=== PATIENT | female | born 1965 | race Caucasian/White ===

== ENCOUNTER → 2019-10-21 09:52 | Outpatient (BNVA) | payer MEDICARE, MEDICAID, SELFPAY | PROVIDERS: Family Provider Internal Medicine; PCP Internal Medicine; Visit Provider Specialist | DX: G31.83 Neurocognitive disorder with Lewy bodies (principal); F02.80 Dementia in other diseases classified elsewhere, unspecified severity, without behavioral disturbance, psychotic disturbance, mood disturbance, and anxiety | CPT/HCPCS: 99213 ==

== ENCOUNTER → 2020-04-20 13:15 | Outpatient (BNVA) | payer MEDICARE, MEDICAID, SELFPAY | PROVIDERS: Family Provider Internal Medicine; PCP Internal Medicine; Visit Provider Specialist | DX: G31.83 Neurocognitive disorder with Lewy bodies (principal); F02.80 Dementia in other diseases classified elsewhere, unspecified severity, without behavioral disturbance, psychotic disturbance, mood disturbance, and anxiety | CPT/HCPCS: 99213 ==

== ENCOUNTER → 2020-05-21 09:06 | Outpatient (BNVA) | payer MEDICARE, MEDICAID, SELFPAY | PROVIDERS: Family Provider Internal Medicine; PCP Internal Medicine; Visit Provider Internal Medicine | DX: Z11.59 Encounter for screening for other viral diseases (principal) | CPT/HCPCS: 87635 ==

== ENCOUNTER 2020-05-24 09:01 | Day surgery (SDC) | payer MEDICARE, MEDICAID, SELFPAY ==
[2020-05-20 12:55] VITALS: BMI 24.4
[2020-05-24 09:45] VITALS: BP 141/86; PULSE 89; RESP 18; TEMP 36.4; O2SAT 95
[2020-05-24] MEDS: sodium chloride 0.9% 1,000 ML 30 ML IV (09:58)
--- NOTE | 2020-05-24 10:08 | W.PM.OPSUD ---
Surgery/Procedure H&P Update DATE OF PROCEDURE: May 24, 2020 DATE H&P PERFORMED: 05/18/20 PREOP DIAGNOSIS: c PLANNED PROCEDURE: Operation Date: 05/24/20 10:30 Proposed Procedures p Colonoscopy 26439 K92.1(Not Applicable) - Deirk Galan MD
--- NOTE | 2020-05-24 10:21 | ANES.PREANE2 ---
Pre-Anesthetic Assessment Pre-Anesthetic Assessment: Height/Weight: Height 1.47 m Weight 53.07 kg Temp Pulse Resp BP Pulse Ox 97.6 F 89 18 141/86 95 05/24/20 09:45 05/24/20 09:45 05/24/20 09:45 05/24/20 09:45 05/24/20 09:45 Preop Diagnosis: hematochezia Proposed Procedure: Operation Date: 05/24/20 10:30 Proposed Procedures p Colonoscopy 09658 K92.1(Not Applicable) - Derik Galan MD Familial anesthetic complications: None (but family hx not well known) Was Beta Go taken within 24 hours: N/A Last intake: Intake Last Liquid Date 05/23/20 Last Liquid Time 20:30 Last Solid Date 05/22/20 Last Solid Time 22:30 Social: Social History: No alcohol and No tobacco Exam: Pre-Anes Outpt Exam: alert, oriented x 3, clear to auscultation bilaterally and regular rate & rhythm Airway: Cervical ROM: WNL MP: 4 Dentition: Chipped Pulmonary: Pulmonary: None reported Neuropsych: Comments: lewy body dementia, Mental retardation, Cerebral palsy, tardive truncal dystonia Anesthetic Plan: ASA status: 2 Anesthesia: MAC Risk of > 500 ml blood loss (7ml/kg in children): No Meds/Allergies Current Medications: Current Medications Generic Name Dose Route Start Last Admin Trade Name Freq PRN Reason Stop Dose Admin Sodium Chloride 1,000 mls @ 30 ml s/hr 05/24/20 09:15 05/24/20 09:58 Sodium Chloride 0.9% IV 30 mls/hr .Q24H ALICE Administration PFSH Anesthesia PFSH: Social History Smoking and tobacco status: never smoked Alcohol intake: never History of recent travel: No Data Anesthesia Cardiac Studies: No Data to Display
[2020-05-24 11:19] VITALS: BP 129/82; PULSE 85; RESP 16; TEMP 36.6; O2SAT 97
--- NOTE | 2020-05-24 11:20 | ANE.PACU2 ---
Inpatient post-anesthesia follow up: Airway intact: Yes Vital signs: Temperature 97.6 F Pulse Rate 89 Respiratory Rate 18 Blood Pressure 141/86 Pulse Oximetry 95 Oxygen Delivery Me thod Room Air Oxygen Flow Rate Fraction of Inspir ed Oxygen Hydration adequate: Yes Nausea and vomiting: No Pain level: 1 Mental status: Baseline
[2020-05-24 11:40] VITALS: BP 124/88; PULSE 102; RESP 16; O2SAT 97
== END 2020-05-24 11:45 | disposition home or self-care (01) ==
PROVIDERS: Family Provider Internal Medicine; PCP Internal Medicine; Visit Provider Internal Medicine
PROC: 0DJD8ZZ Inspection of Lower Intestinal Tract, Via Natural or Artificial Opening Endoscopic (ICD-10-PCS; CPT 45378; principal; 2020-05-24 10:30)
DX: Z12.11 Encounter for screening for malignant neoplasm of colon (principal); K92.1 Melena; G31.83 Neurocognitive disorder with Lewy bodies; F02.80 Dementia in other diseases classified elsewhere, unspecified severity, without behavioral disturbance, psychotic disturbance, mood disturbance, and anxiety; G80.9 Cerebral palsy, unspecified
CPT/HCPCS: 12345; 45378; J2704; J7030

== ENCOUNTER 2020-05-27 10:00 | Outpatient (CLI) | payer MEDICARE, MEDICAID, SELFPAY ==
--- NOTE | 2020-05-27 10:12 | MM_ITS ---
WS: [id number] BILATERAL DIGITAL SCREENING MAMMOGRAPHY WITH CAD CLINICAL INFORMATION: SCREEN HISTORY: Screening mammogram. No current complaints. COMPARISON: TECHNIQUE: Bilateral CC and MLO views. FINDINGS: The breasts are composed of heterogeneous fibroglandular density tissue, which can limit the detectio n of small underlying mass lesions. No suspicious mass, asymmetry, calcifications, or architectural d istortion. No evidence of malignancy. Stable punctate and secretory calcifications. MM/[place] [id number] IMPRESSION: BI-RADS: 2-Benign FOLLOW UP: 1 Year Follow-up Recommend return to annual screening mammography.
== END 2020-05-27 10:01 | disposition home or self-care (01) ==
LOC: RADSHAW 10:08
PROVIDERS: PCP Internal Medicine; Visit Provider Internal Medicine
DX: Z12.31 Encounter for screening mammogram for malignant neoplasm of breast (principal)
CPT/HCPCS: 77067

== ENCOUNTER → 2020-10-13 11:28 | Outpatient (BNVA) | payer MEDICARE, MEDICAID, SELFPAY | PROVIDERS: Family Provider Internal Medicine; PCP Internal Medicine; Visit Provider Specialist | DX: G31.83 Neurocognitive disorder with Lewy bodies (principal); F02.80 Dementia in other diseases classified elsewhere, unspecified severity, without behavioral disturbance, psychotic disturbance, mood disturbance, and anxiety | CPT/HCPCS: 99213 ==

== ENCOUNTER 2021-01-02 09:24 | Inpatient (IN) | payer MEDICARE, MEDICAID, SELFPAY ==
[2021-01-02] VITALS (14 sets, daily range): BP systolic 127–154; BP diastolic 77–112; PULSE 64–125; RESP 16–20; TEMP 36.5–37.2; O2SAT 90–98; BMI 33.4
--- NOTE | 2021-01-02 09:29 | ECG_ITS ---
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
--- NOTE | 2021-01-02 09:29 | XRR_ITS ---
PROCEDURE INFORMATION: Exam: XR Chest Exam date and time: 01/02/2021 9:47 AM Age: 55 years old Clinical indication: Other: AMS TECHNIQUE: Imaging protocol: XR of the chest. Views: 1 view. COMPARISON: No relevant prior studies available. FINDINGS: Lungs: Unremarkable. No consolidation. Pleural spaces: Unremarkable. No pleural effusion. No pneumothorax. Heart/Mediastinum: Unremarkable. No cardiomegaly. Bones/joints: Unremarkable. XR/XR chest 1V portable [id number] IMPRESSION: No acute findings.
--- NOTE | 2021-01-02 09:46 | CTR_ITS ---
PROCEDURE INFORMATION: Exam: CT Head Without Contrast Exam date and time: 01/02/2021 10:56 AM Age: 55 years old Clinical indication: Altered mental status/memory loss; Additional info: AMS TECHNIQUE: Imaging protocol: Computed tomography of the head without contrast. Radiation optimization: All CT scans at this facility use at least one of these dose optimization techniques: automated exposure control; mA and/or kV adjustment per patient size (includes targeted exams where dose is matched to clinical indication); or iterative reconstruction. COMPARISON: CT head wo con* [id number] 08/06/2019 7:57 PM RADIATION DOSE METRICS: Total DLP (mGy-cm): 895.89 FINDINGS: Brain: There is mild chronic atrophy. There is mild decreased white matter density indicating chronic small vessel white matter ischemia. No intracranial hemorrhage, edema or other acute abnormalities are seen in the brain. There is no mass effect or midline shift. Cerebral ventricles: No ventriculomegaly. Bones/joints: Unremarkable. No acute fracture. Paranasal sinuses: Visualized sinuses are unremarkable. No fluid levels. Mastoid air cells: Visualized mastoid air cells are well aerated. Soft tissues: Unremarkable. CT/CT head wo con* [id number] IMPRESSION: 1. Mild chronic atrophy with chronic white matter ischem. ic change. 2. No acute abnormality Radiation Dose CTDIVOL = (mGy): DLP = 895.89 (mGy-cm)
--- NOTE | 2021-01-02 10:04 | W.ED.PSYCH ---
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 Specimen Type Sample Site ABG pH (7.35-7.45) ABG pCO2 (35-45) mmHg ABG pO2 (80.0-100.0) mmH g ABG HCO3 (22-26) mmol/L ABG O2 Saturation ABG Base Excess (-2.0-2.0) mmol/ L Nicola Test A-a O2 Gradient (5-10) mmHg Hematocrit (37-47) % Hgb O2 Saturation (95-100) % Carboxyhemoglobin (0.4-20.1) %THgb Methemoglobin (0.4-1.5) % Total Hemoglobin (12-16) g/dL Ionized Calcium (1.1-1.4) mmol/L O2 Delivery Device Casino Cage Manager ID Sodium 143 (136-145) mmol/L Potassium 4.5 (3.5-5.1) mmol/L Chloride 103 (98-107) mmol/L Carbon Dioxide 31 H (22-29) mmol/L Anion Gap 13.5 (5-19) BUN 12 (6-20) mg/dL Creatinine 0.7 (0.5-0.9) mg/dL GFR Calculation 86.6 L (90-130) mL/min Glucose 96 (65-115) mg/dL Calculated Osmolal ity 296 H (285-295) mOsm/k g Lactate (0.5-2.2) mmol/L Calcium 8.7 (8.5-10.5) mg/dL Total Bilirubin 0.5 (0.15-1.2) mg/dL AST 21 (0-32) U/L ALT 14 (0-33) U/L Alkaline Phosphata se 113 H (35-105) IU/L Troponin T Baselin e 10 (0-10) ng/L Troponin T 120 Min [place] (0-10) ng/L Delta Troponin T (0-10) ABS# Total Protein 6.5 L (6.6-8.7) g/dL Albumin 4.1 (3.5-5.2) g/dL Globulin 2.4 (1.3-4.6) g/dL Urine Color (Yellow) Urine Appearance (CLEAR) Urine pH (5-7) Ur Specific Gravit y (1.005-1.030) Urine Protein (Negative) Urine Glucose (UA) (Normal) Urine Ketones (Negative) Urine Blood (Negative) Urine Nitrate (Negative) Urine Bilirubin (Negative) Urine Urobilinogen (Negative) mg/dL Ur Leukocyte Елена ase (Negative) Urine RBC (0-2) /hpf Urine WBC (0-5) /hpf Ur Squamous Epith Cells (0-5) /hpf Amorphous Sediment Urine Bacteria (NONE) /hpf Urine Mucus /hpf Salicylates < 0.3 L (3-10) mg/dL Urine Opiates Scre en (Negative) ng/mL Acetaminophen < 5.0 L (10-30) ug/mL Ur Barbiturates Sc reen (Negative) ng/mL Ur Phencyclidine S crn (Negative) ng/mL Ur Amphetamines Sc reen (Negative) ng/mL U Benzodiazepines Scrn (Negative) ng/mL Urine Cocaine Scre en (Negative) ng/mL U Marijuana (THC) Screen (Negative) ng/mL Ethyl Alcohol < 10 (0-10) mg/dL 01/02/21 01/02/21 01/02/21 Range/Units 10:07 10:07 10:35 WBC (4.0-10.0) 10^3/ uL RBC (4.1-5.3) 10^6/u L Hgb (11.5-15.3) g/dL Hct (37.0-47.0) % MCV (81-99) fL MCH (28.0-34.0) pg MCHC (30.0-36.0) g/dL RDW (12.1-15.1) % Plt Count (130-400) 10^3/c mm MPV (7.4-10.4) fL Neut % (Auto) % Lymph % (Auto) % [place] % (Auto) % Eos % (Auto) % Baso % (Auto) % Neut # (Auto) (1.8-7.7) 10^3/u L Lymph # (Auto) (0.8-4.8) 10^3/u L [place] # (Auto) (0.2-0.9) 10^3/u L Eos # (Auto) (0.0-0.8) 10^3/u L Baso # (Auto) (0.0-0.1) 10^3/u L Nucleated RBC % (a uto) % Nucleated RBCs # /100WBC Specimen Type Sample Site ABG pH (7.35-7.45) ABG pCO2 (35-45) mmHg ABG pO2 (80.0-100.0) mmH g ABG HCO3 (22-26) mmol/L ABG O2 Saturation ABG Base Excess (-2.0-2.0) mmol/ L Nicola Test A-a O2 Gradient (5-10) mmHg Hematocrit (37-47) % Hgb O2 Saturation (95-100) % Carboxyhemoglobin (0.4-20.1) %THgb Methemoglobin (0.4-1.5) % Total Hemoglobin (12-16) g/dL Ionized Calcium (1.1-1.4) mmol/L O2 Delivery Device Casino Cage Manager ID Sodium (136-145) mmol/L Potassium (3.5-5.1) mmol/L Chloride (98-107) mmol/L Carbon Dioxide (22-29) mmol/L Anion Gap (5-19) BUN (6-20) mg/dL Creatinine (0.5-0.9) mg/dL GFR Calculation (90-130) mL/min Glucose (65-115) mg/dL Calculated Osmolal ity (285-295) mOsm/k g Lactate 2.8 H (0.5-2.2) mmol/L Calcium (8.5-10.5) mg/dL Total Bilirubin (0.15-1.2) mg/dL AST (0-32) U/L ALT (0-33) U/L Alkaline Phosphata se (35-105) IU/L Troponin T Baselin e (0-10) ng/L Troponin T 120 Min [place] (0-10) ng/L Delta Troponin T (0-10) ABS# Total Protein (6.6-8.7) g/dL Albumin (3.5-5.2) g/dL Globulin (1.3-4.6) g/dL Urine Color Dark yellow (Yellow) Urine Appearance Sl hazy (CLEAR) Urine pH 5 (5-7) Ur Specific Gravit y 1.020 (1.005-1.030) Urine Protein Neg (Negative) Urine Glucose (UA) Norm (Normal) Urine Ketones Negative (Negative) Urine Blood Neg (Negative) Urine Nitrate Negative (Negative) Urine Bilirubin Neg (Negative) Urine Urobilinogen 1 H (Negative) mg/dL Ur Leukocyte Елена ase Trace H (Negative) Urine RBC None (0-2) /hpf Urine WBC 5-10 H (0-5) /hpf Ur Squamous Epith Cells 15-25 H (0-5) /hpf Amorphous Sediment Not Reportable Urine Bacteria Trace (NONE) /hpf Urine Mucus 1+ /hpf Salicylates (3-10) mg/dL Urine Opiates Scre en Negative (Negative) ng/mL Acetaminophen (10-30) ug/mL Ur Barbiturates Sc reen Negative (Negative) ng/mL Ur Phencyclidine S crn Negative (Negative) ng/mL Ur Amphetamines Sc reen Negative (Negative) ng/mL U Benzodiazepines Scrn Positive H (Negative) ng/mL Urine Cocaine Scre en Negative (Negative) ng/mL U Marijuana (THC) Screen Negative (Negative) ng/mL Ethyl Alcohol (0-10) mg/dL 01/02/21 01/02/21 Range/Units 12:40 13:05 WBC (4.0-10.0) 10^3/ uL RBC (4.1-5.3) 10^6/u L Hgb (11.5-15.3) g/dL Hct (37.0-47.0) % MCV (81-99) fL MCH (28.0-34.0) pg MCHC (30.0-36.0) g/dL RDW (12.1-15.1) % Plt Count (130-400) 10^3/c mm MPV (7.4-10.4) fL Neut % (Auto) % Lymph % (Auto) % [place] % (Auto) % Eos % (Auto) % Baso % (Auto) % Neut # (Auto) (1.8-7.7) 10^3/u L Lymph # (Auto) (0.8-4.8) 10^3/u L [place] # (Auto) (0.2-0.9) 10^3/u L Eos # (Auto) (0.0-0.8) 10^3/u L Baso # (Auto) (0.0-0.1) 10^3/u L Nucleated RBC % (a uto) % Nucleated RBCs # /100WBC Specimen Type Arterial Sample Site Radial, left ABG pH 7.35 (7.35-7.45) ABG pCO2 54.2 H (35-45) mmHg ABG pO2 63.4 L (80.0-100.0) mmH g ABG HCO3 29.9 H (22-26) mmol/L ABG O2 Saturation 91.6 ABG Base Excess 3.1 H (-2.0-2.0) mmol/ L Nicola Test Pos A-a O2 Gradient 2.7 L (5-10) mmHg Hematocrit 41.6 (37-47) % Hgb O2 Saturation 90.5 L (95-100) % Carboxyhemoglobin 0.4 (0.4-20.1) %THgb Methemoglobin 0.8 (0.4-1.5) % Total Hemoglobin 13.6 (12-16) g/dL Ionized Calcium 1.2 (1.1-1.4) mmol/L O2 Delivery Device Room air Casino Cage Manager ID Cak Sodium 144.0 H (136-145) mmol/L Potassium 3.7 (3.5-5.1) mmol/L Chloride (98-107) mmol/L Carbon Dioxide (22-29) mmol/L Anion Gap (5-19) BUN (6-20) mg/dL Creatinine (0.5-0.9) mg/dL GFR Calculation (90-130) mL/min Glucose 89.0 (65-115) mg/dL Calculated Osmolal ity (285-295) mOsm/k g Lactate (0.5-2.2) mmol/L Calcium (8.5-10.5) mg/dL Total Bilirubin (0.15-1.2) mg/dL AST (0-32) U/L ALT (0-33) U/L Alkaline Phosphata se (35-105) IU/L Troponin T Baselin e (0-10) ng/L Troponin T 120 Min [place] 9.04 (0-10) ng/L Delta Troponin T -0.96 L (0-10) ABS# Total Protein (6.6-8.7) g/dL Albumin (3.5-5.2) g/dL Globulin (1.3-4.6) g/dL Urine Color (Yellow) Urine Appearance (CLEAR) Urine pH (5-7) Ur Specific Gravit y (1.005-1.030) Urine Protein (Negative) Urine Glucose (UA) (Normal) Urine Ketones (Negative) Urine Blood (Negative) Urine Nitrate (Negative) Urine Bilirubin (Negative) Urine Urobilinogen (Negative) mg/dL Ur Leukocyte Елена ase (Negative) Urine RBC (0-2) /hpf Urine WBC (0-5) /hpf Ur Squamous Epith Cells (0-5) /hpf Amorphous Sediment Urine Bacteria (NONE) /hpf Urine Mucus /hpf Salicylates (3-10) mg/dL Urine Opiates Scre en (Negative) ng/mL Acetaminophen (10-30) ug/mL Ur Barbiturates Sc reen (Negative) ng/mL Ur Phencyclidine S crn (Negative) ng/mL Ur Amphetamines Sc reen (Negative) ng/mL U Benzodiazepines Scrn (Negative) ng/mL Urine Cocaine Scre en (Negative) ng/mL U Marijuana (THC) Screen (Negative) ng/mL Ethyl Alcohol (0-10) mg/dL Discharge Plan Discharge Patient Disposition: Admitted As Inpatient Admit Provider: Sher Woodard Clinical Impression: Delirium Pneumonia Qualifiers: Pneumonia type: due to unspecified organism Laterality: left Lung location: lower lobe of lung Qualified Code(s): J18.9 - Pneumonia, unspecified organism Condition: Stable Discharge Diet: Usual diet Discharge Activity: Resume usual activity Coding Level of Care Code ED Medical Claims Assistant for [place] Fwd Exam Comprehensive
[2021-01-02] MEDS: LORazepam 2 mg/mL INJ 1 mL IM (10:23)
[2021-01-02 10:45] LABS: Troponin(5th) Baseline 10 ng/L (0-10)
[2021-01-02 10:46] LABS: Basophils % 0.3 %; Eosinophils # 0.1 10^3/uL (0.0-0.8); Eosinophils % 0.6 %; Hematocrit 41.8 % (37.0-47.0); Hemoglobin 13.2 g/dL (11.5-15.3); Lymphocytes # 1.3 10^3/uL (0.8-4.8); Lymphocytes % 13.3 %; Mean Corpuscular HGB Conc 31.6 g/dL (30.0-36.0); Mean Corpuscular Hemoglobin 31.1 pg (28.0-34.0); Mean Corpuscular Volume 98.6 fL (81-99); Mean Platelet Volume 9.5 fL (7.4-10.4); Monocytes # 0.7 10^3/uL (0.2-0.9); Monocytes % 6.8 %; Neutrophils # 7.89 10^3/uL (1.8-7.7); Neutrophils % 78.8 %; Nucleated Red Blood Cells % 0 %; Platelet Count 179 10^3/cmm (130-400); Red Blood Count 4.24 10^6/uL (4.1-5.3); Red Cell Distribution Width 12.6 % (12.1-15.1)
[2021-01-02 10:47] LABS: Alanine Aminotransferase 14 U/L (0-33); Albumin Level 4.1 g/dL (3.5-5.2); Alkaline Phosphatase 113 IU/L (35-105); Anion Gap 13.5 (5-19); Aspartate Amino Transferase 21 U/L (0-32); Blood Urea Nitrogen 12 mg/dL (6-20); Calcium 8.7 mg/dL (8.5-10.5); Carbon Dioxide 31 mmol/L (22-29); Chloride 103 mmol/L (98-107); Globulin 2.4 g/dL (1.3-4.6); Glomerular Filtration Rate 86.6 mL/min (90-130); Glucose 96 mg/dL (65-115); Osmolality Calculated 296 mOsm/kg (285-295); Potassium 4.5 mmol/L (3.5-5.1); Sodium 143 mmol/L (136-145); Total Bilirubin 0.5 mg/dL (0.15-1.2); Total Protein 6.5 g/dL (6.6-8.7)
[2021-01-02 10:48] LABS: Amphetamines Screen Urine Negative (Negative); Barbiturates Screen Urine Negative (Negative); Benzodiazepines Screen Urine Positive (Negative); Cocaine Screen Urine Negative (Negative); Opiate Screen Urine Negative (Negative); PCP Screen Urine Negative (Negative); THC Screen Urine Negative (Negative)
[2021-01-02 10:49] LABS: Urine Appearance SL Hazy (CLEAR); Urine Color Dark Yellow (Yellow); pH Urine 5 (5-7)
[2021-01-02 10:50] LABS: Add Urine Microscopic? YES; Bilirubin Urine Neg (Negative); Blood Urine Neg (Negative); Glucose Urine UA Norm (Normal); Ketones Urine Negative (Negative); Leukocyte Esterase Urine Trace (Negative); Nitrate Urine Negative (Negative); Protein Urine Neg (Negative); Urobilinogen Urine 1 mg/dL (Negative)
[2021-01-02 10:51] LABS: Acetaminophen < 5.0 ug/mL (10-30); Alcohol Level < 10 mg/dL (0-10); Salicylate < 0.3 mg/dL (3-10)
[2021-01-02 10:56] LABS: Lactate (Lactic Acid level) 2.8 mmol/L (0.5-2.2)
[2021-01-02 11:02] LABS: Squamous Epithelial Cell Urine 15-25 /hpf (0-5)
[2021-01-02 11:04] LABS: Bacteria Urine TRACE /hpf; Mucus Urine 1+ /hpf
[2021-01-02 11:05] LABS: Add Urine Culture? No
--- NOTE | 2021-01-02 11:18 | CTR_ITS ---
PROCEDURE INFORMATION: Exam: CT Abdomen And Pelvis With Contrast Exam date and time: 01/02/2021 1:49 PM Age: 55 years old Clinical indication: Abdominal pain; Additional info: Elevated lactic acid, abdominal pain TECHNIQUE: Imaging protocol: Computed tomography of the abdomen and pelvis with contrast. Radiation optimization: All CT scans at this facility use at least one of these dose optimization techniques: automated exposure control; mA and/or kV adjustment per patient size (includes targeted exams where dose is matched to clinical indication); or iterative reconstruction. Contrast material: OMNI 300; Contrast volume: 95 ml; Contrast route: INTRAVENOUS (IV); COMPARISON: No relevant prior studies available. RADIATION DOSE METRICS: Total DLP (mGy-cm): 1555.43 FINDINGS: Lungs: There is a left lower lobe pneumonia. Liver: Normal. No mass. Gallbladder and bile ducts: Normal. No calcified stones. No ductal dilation. Pancreas: Normal. No ductal dilation. Spleen: Normal. No splenomegaly. Adrenal glands: Normal. No mass. Kidneys and ureters: There is a benign 2 cm cyst in the left kidney. Otherwise the kidneys are unremarkable. Stomach and bowel: There is prominence of the amount of stool in the right-sided colon. There is no evidence of bowel obstruction. Appendix: The appendix is seen and is normal. Intraperitoneal space: Unremarkable. No free air. No significant fluid collection. Vasculature: Unremarkable. No abdominal aortic aneurysm. Lymph nodes: Unremarkable. No enlarged lymph nodes. Urinary bladder: The urinary bladder is distended. There is a small bubble of air in the urinary bladder. Reproductive: Unremarkable as visualized. Bones/joints: Mild chronic degenerative changes are present in the spine. Soft tissues: Unremarkable. CT/CT abdomen pelvis w con* [id number] IMPRESSION: 1. Left lower lobe pneumonia. 2. The urinary bladder is distended. There is a small bubble of air in the urinary bladder. This could be present if the patient has had recent catheterization. If not then cystitis from gas-forming organism cannot be excluded and correlate with urinalysis. COMMENTS: Consistent with the [employer]'s Incidental Findings Committee white paper (J Am Stanislav Radiol 2018): Any incidental renal lesion less than 1 cm or classified as too small to characterize, or any incidental cystic renal lesion characterized as simple-appearing, is likely benign. No follow-up imaging is recommended for these lesions per consensus recommendations based on imaging criteria. Radiation Dose CTDIVOL = (mGy): DLP = 1555.43 (mGy-cm)
[2021-01-02] MEDS: ziprasidone 20 mg/mL SDV 10 MG IM (11:38)
--- NOTE | 2021-01-02 12:09 | ECG_ITS ---
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
[2021-01-02 12:51] LABS: ABG PCO2 54.2 mmHg (35-45); ABG PH Result 7.35 (7.35-7.45); Alveolar-Arterial Oxygen Gradi 2.7 mmHg (5-10); Arterial Blood Gas Hematocrit 41.6 % (37-47); Base Excess ABG 3.1 mmol/L (-2.0-2.0); Blood Gas Allen Test Pos; Blood Gas Operator Identificat CAK; Blood Gas Sample Site Radial, left; Blood Gas Sample Type Arterial; Carboxyhemoglobin 0.4 %THgb (0.4-20.1); HCO3 ABG 29.9 mmol/L (22-26); HGB O2 Sat 90.5 % (95-100); Ionized Calcium Level - ABG 1.2 mmol/L (1.1-1.4); Methemoglobin 0.8 % (0.4-1.5); Oxygen Device ROOM AIR; Oxygen Saturation ABG 91.6; PO2 ABG 63.4 mmHg (80.0-100.0); Potassium Level - ABG 3.7 mmol/L (3.5-5.0); Total Hemoglobin 13.6 g/dL (12-16)
[2021-01-02] MEDS: sodium chloride 0.9% 1,000 ML 999 ML IV (13:07)
[2021-01-02 13:35] LABS: Troponin 5 2HR 9.04 ng/L (0-10)
[2021-01-02 13:39] LABS: Troponin 5 2HR Delta -0.96 ABS# (0-10)
[2021-01-02] MEDS: iohexol 300 mg/mL 100 mL Btl IV (14:10)
[2021-01-02] MEDS: levofloxacin-dextrose 5 % 750 MG/150 ML PREMIX 100 MG IV (14:40)
[2021-01-02 16:32] LABS: SARS Covid-2 Antigen Negative (Negative)
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
[2021-01-02] MEDS: dextrose 5%-sod chloride 0.45% 1,000 ML 75 ML IV (18:27)
[2021-01-02] MEDS: enoxaparin 40 mg/0.4 mL Syringe SUBCUT (18:27)
[2021-01-02] MEDS: famotidine 20 mg/2 mL INJ IVP (18:27)
[2021-01-02] MEDS: cefTRIAXone 1,000 MG in sodium chloride 0.9% (plus) 50 ML 100 MG IV (18:35)
[2021-01-02 19:27] LABS: Troponin 5 6HR 9.86 ng/L (0-10)
[2021-01-02 19:36] LABS: Thyroid Stimulating Hormone 1.11 uIU/mL (0.27-4.20)
[2021-01-02 20:35] LABS: Iron 62 ug/dL (37-145); Percent Saturation 21.2 % (20-50); Total Iron Binding Capacity 292 mcg/dl; Unsaturated Iron Binding 230 ug/dL (112-347)
[2021-01-03] VITALS (10 sets, daily range): BP systolic 116–153; BP diastolic 61–88; PULSE 56–95; RESP 17–20; TEMP 36.2–36.7; O2SAT 91–94
[2021-01-03] MEDS: famotidine 20 mg/2 mL INJ IVP ×2 (05:50→18:42)
[2021-01-03 05:54] LABS: Basophils % 0.5 %; Eosinophils # 0.1 10^3/uL (0.0-0.8); Eosinophils % 2.4 %; Hematocrit 39.2 % (37.0-47.0); Hemoglobin 12.5 g/dL (11.5-15.3); Lymphocytes # 1.9 10^3/uL (0.8-4.8); Lymphocytes % 33.2 %; Mean Corpuscular HGB Conc 31.9 g/dL (30.0-36.0); Mean Corpuscular Hemoglobin 31.7 pg (28.0-34.0); Mean Corpuscular Volume 99.5 fL (81-99); Mean Platelet Volume 9.1 fL (7.4-10.4); Monocytes # 0.6 10^3/uL (0.2-0.9); Monocytes % 9.8 %; Neutrophils # 3.13 10^3/uL (1.8-7.7); Neutrophils % 53.6 %; Nucleated Red Blood Cells % 0 %; Platelet Count 171 10^3/cmm (130-400); Red Blood Count 3.94 10^6/uL (4.1-5.3); Red Cell Distribution Width 12.6 % (12.1-15.1); White Blood Count 5.8 10^3/uL (4.0-10.0)
[2021-01-03 06:25] LABS: Alanine Aminotransferase 13 U/L (0-33); Albumin Level 3.5 g/dL (3.5-5.2); Alkaline Phosphatase 91 IU/L (35-105); Anion Gap 12.4 (5-19); Aspartate Amino Transferase 26 U/L (0-32); Blood Urea Nitrogen 8 mg/dL (6-20); Calcium 7.9 mg/dL (8.5-10.5); Carbon Dioxide 27 mmol/L (22-29); Chloride 103 mmol/L (98-107); Globulin 2.6 g/dL (1.3-4.6); Glomerular Filtration Rate 127.6 mL/min (90-130); Glucose 84 mg/dL (65-115); Osmolality Calculated 286 mOsm/kg (285-295); Phosphorus 2.5 mg/dL (2.5-4.5); Potassium 3.4 mmol/L (3.5-5.1); Sodium 139 mmol/L (136-145); Total Bilirubin 0.4 mg/dL (0.15-1.2); Total Protein 6.1 g/dL (6.6-8.7)
[2021-01-03] MEDS: dextrose 5%-sod chloride 0.45% 1,000 ML 75 ML IV (08:45)
[2021-01-03] MEDS: venlafaxine ER (24HR) 75 mg Capsule PO ×2 (08:49→20:08)
[2021-01-03] MEDS: OLANZapine 5 mg TABLET PO ×2 (08:49→20:08)
[2021-01-03] MEDS: LORazepam 1 mg Tablet PO (08:49)
[2021-01-03] MEDS: donepezil 5 MG Tablet 10 MG PO (08:49)
[2021-01-03] MEDS: lamoTRIgine 100 mg Tablet 150 MG PO ×2 (08:49→20:08)
[2021-01-03] MEDS: fluticasone nasal spray 16gm Btl 2 SPRAY INTRANASAL (08:50)
[2021-01-03] MEDS: ammonium lactate lotion 226 gm Btl 1 APPLIC TOPICAL ×2 (08:51→20:08)
[2021-01-03] MEDS: ipratropium-albuterol 3 mL Neb INHALATION (10:14)
[2021-01-03 16:17] LABS: Coronavirus Test Green County Not Detected
--- NOTE | 2021-01-03 17:38 | PM.PN ---
Subjective Subjective: Interval history: No acute events overnight. Patient has remained. Stable. Has not required any further sedating medications. Has remained on room Vitals/I&O/Wt Last Vital Signs Temp 97.7 F 01/03/21 15:35 Pulse 70 01/03/21 15:35 Resp 17 01/03/21 15:35 BP 136/88 01/03/21 15:35 Pulse Ox 91 01/03/21 11:29 01/03/21 01/03/21 01/03/21 06:59 14:59 22:59 Intake Total 1360 / 1360 Output Total 0 / 0 Balance 0 / 1200 1360 / 1360 Weight last 48 hrs Weight 71.713 kg Weight 72.575 kg Physical Exam Narrative: EXAM NARRATIVE: General: No acute distress, HEENT: PERRLA, pupils bilaterally equal and reactive Chest: Normal vesicular breath sounds, occasional bilateral rhonchi ,equal good air entry bilaterally CVS: S1-S2 regular, no murmurs, no tachycardia, no gallops, no rubs Abdomen: Soft, nontender, no organomegaly, bowel sounds present Neuro: No focal deficits, no facial deformity, power 5/5 in all limbs Data : 01/03/21 05:33 01/03/21 05:33 Micro: Microbiology 01/02/21 18:30 MRSA Culture - Final Nose 01/02/21 13:05 Blood Culture - Preliminary Blood NEGATIVE TO DATE 01/02/21 10:07 Legionella Urinary Antigen - Final Urethra 01/02/21 18:55 Blood Culture - Preliminary Blood SPECIMEN COLLECTED A&P Assessment and plan (1) Delirium: Status: Acute (2) Pneumonia: Status: Acute Qualifiers: Laterality: left Lung location: lower lobe of lung Pneumonia type: due to unspecified organism Qualified Code(s): J18.9 - Pneumonia, unspecified organism (3) Lewy body dementia: Status: Acute (4) Mental deficiency: Status: Acute Additional A&P Information 55-year-old female lives in a intermediate with past medical history of Lewy body dementia comes in because of combative behavior and delirium which started yesterday most likely secondary to stressful news she got yesterday found to have possible consolidation on work-up in the ER. Delirium: Most likely secondary to psychosis with underlying Lewy body dementia. We will consult psychiatry for recommendations. For now continue all chronic medications at current dose. Geodon as needed. Pneumonia: No signs of sepsis. Patient does not have any fever, no leukocytosis, saturating well on room air. Sputum culture, blood culture awaited. MRSA Legionella negative. Procalcitonin negative. COVID-19 PCR negative. Continue with IV ceftriaxone. Most likely can transition over to oral Levaquin and Augmentin as an outpatient for 5-day course. Monitor oxygen saturations. Maintain over 92%. Once cleared from medicine most likely can be transferred over to neuropsych schrader for further management. Patient awaiting psychiatric evaluation. Full code. Cardiac diet. Lovenox for DVT prophylaxis. Attestations Medical Necessity Statement*: Patient hospitalization for psychiatric evaluation in view of delirium because of baseline metabolic dementia and anticoagulant Time Spent in Patient Care: Greater than 35 minutes (>than 50% of time spent in counselling and/or direct pt care on unit). Coding Level of Care Code Acute Women Specialist for [place] oL Diagnoses Delirium R41.0 Pneumonia J18.9 Laterality: left Lung location: lower lobe of lung Pneumonia type: due to unspecified organism Lewy body dementia G31.83; F02.80 Mental deficiency F79
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
[2021-01-03] MEDS: enoxaparin 40 mg/0.4 mL Syringe SUBCUT (18:42)
[2021-01-03] MEDS: cefTRIAXone 1,000 MG in sodium chloride 0.9% (plus) 50 ML 100 MG IV (18:42)
[2021-01-03] MEDS: topiramate 25 mg Tablet PO (20:08)
[2021-01-04 04:00] VITALS: BP 134/80; PULSE 66; RESP 20; TEMP 36.4; O2SAT 96
[2021-01-04 06:00] VITALS: PULSE 77
[2021-01-04 07:45] VITALS: BP 130/83; PULSE 86; RESP 17; TEMP 37; O2SAT 98
[2021-01-04] MEDS: lamoTRIgine 100 mg Tablet 150 MG PO (08:20)
[2021-01-04] MEDS: OLANZapine 5 mg TABLET PO (08:20)
[2021-01-04] MEDS: LORazepam 1 mg Tablet PO (08:20)
[2021-01-04] MEDS: fluticasone nasal spray 16gm Btl 2 SPRAY INTRANASAL (08:21)
[2021-01-04] MEDS: venlafaxine ER (24HR) 75 mg Capsule PO (08:21)
[2021-01-04] MEDS: ammonium lactate lotion 226 gm Btl 1 APPLIC TOPICAL (08:21)
[2021-01-04] MEDS: donepezil 5 MG Tablet 10 MG PO (08:21)
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
--- NOTE | 2021-01-04 11:06 | PC.NURSE ---
REPORT REPORT CALLED TO WHIT ABBOTT RN AT [facility]
[2021-01-04 12:17] VITALS: BP 130/83; PULSE 86; RESP 17; TEMP 37; O2SAT 98
== END 2021-01-04 12:00 | disposition intermediate care facility (04) | DRG 194 ==
LOC: ER 14:44 → MEDSURG 15:40
PROVIDERS: Admitting Provider Student in an Organized Health Care Education/Training Program; Emergency Provider Nurse Practitioner Family; PCP Internal Medicine; Visit Provider Student in an Organized Health Care Education/Training Program
DX: J18.9 Pneumonia, unspecified organism (principal); F02.81 Dementia in other diseases classified elsewhere, unspecified severity, with behavioral disturbance; K92.1 Melena; G31.83 Neurocognitive disorder with Lewy bodies; F79 Unspecified intellectual disabilities
CPT/HCPCS: 36415; 36600; 51701; 70450; 71045; 74177; 80051; 80053; 80306; 80307; 81001; 82330; 82805; 83540; 83550; 83605; 83735; 84100; 84145; 84443; 84484; 85025; 87040; 87426; 87449; 87635; 87641; 93005; 94640; 94664; 96365; 96372; 99285; J0696; J1650; J1956; J2060; J3486; J3490; J7030; J7799; Q9967

== ENCOUNTER → 2021-01-24 12:24 | Outpatient (BNVA) | payer MEDICARE, MEDICAID, SELFPAY | PROVIDERS: PCP Internal Medicine; Visit Provider Specialist | DX: G31.83 Neurocognitive disorder with Lewy bodies (principal); F02.80 Dementia in other diseases classified elsewhere, unspecified severity, without behavioral disturbance, psychotic disturbance, mood disturbance, and anxiety | CPT/HCPCS: 99214 ==

== ENCOUNTER 2021-04-08 11:25 | Outpatient (CLI) | payer MEDICARE, MEDICAID, SELFPAY ==
--- NOTE | 2021-04-08 11:34 | XR_ITS ---
WS: [id number] XR nasal bones min 3V [id number] REASON FOR EXAM: fall FINDINGS: The superior and inferior nasal spine are intact. No other abnormality. XR/XR nasal bones min 3V [id number] IMPRESSION: No nasal fracture identified.
== END 2021-04-08 11:26 | disposition home or self-care (01) ==
PROVIDERS: PCP Internal Medicine; Visit Provider Nurse Practitioner
DX: S09.92XA Unspecified injury of nose, initial encounter (principal); W19.XXXA Unspecified fall, initial encounter
CPT/HCPCS: 70160

== ENCOUNTER → 2021-04-12 12:45 | Outpatient (BNVA) | payer MEDICARE, MEDICAID, SELFPAY | PROVIDERS: PCP Internal Medicine; Visit Provider Specialist | DX: G31.83 Neurocognitive disorder with Lewy bodies (principal); F02.80 Dementia in other diseases classified elsewhere, unspecified severity, without behavioral disturbance, psychotic disturbance, mood disturbance, and anxiety | CPT/HCPCS: 99214 ==

== ENCOUNTER 2021-07-06 10:39 | Outpatient (CLI) | payer MEDICARE, MEDICAID, SELFPAY ==
--- NOTE | 2021-07-06 11:00 | MM_ITS ---
WS: [id number] Exam: [id number] Date/Time of Exam: 07/06/2021 10:46 AM Reason For Exam: Z12.39 - Encounter for other screening for malignant neop... VIEWS: MLO and CC views both breasts. Comparison made with prior exam of 04/09/2017, 04/11/2018, 04/23/2019 and 05/27/2020. Findings: There was no sign of mass, architectural distortion or suspicious calcification in either breast. Sc attered fibroglandular densities MM/[id number] Impression: BI-RADS: 2-Benign FOLLOW-UP: 1 Year Follow-up This mammogram was also analyzed by the Computer Aided Detection System R2 Imag e Aircraft Motor Mechanic.
== END 2021-07-06 10:40 | disposition home or self-care (01) ==
LOC: RADSHAW 10:42
PROVIDERS: PCP Internal Medicine; Visit Provider Internal Medicine
DX: Z12.31 Encounter for screening mammogram for malignant neoplasm of breast (principal)
CPT/HCPCS: 77067

== ENCOUNTER → 2021-12-12 08:09 | Outpatient (BNVA) | payer MEDICARE, MEDICAID, SELFPAY | PROVIDERS: PCP Internal Medicine; Visit Provider Specialist | DX: G31.83 Neurocognitive disorder with Lewy bodies (principal); F02.80 Dementia in other diseases classified elsewhere, unspecified severity, without behavioral disturbance, psychotic disturbance, mood disturbance, and anxiety; F79 Unspecified intellectual disabilities | CPT/HCPCS: 99213; 99214 ==

== ENCOUNTER → 2022-06-12 10:36 | Outpatient (BNVA) | payer MEDICARE, MEDICAID, SELFPAY | PROVIDERS: PCP Internal Medicine; Visit Provider Specialist | DX: G31.83 Neurocognitive disorder with Lewy bodies (principal); F02.80 Dementia in other diseases classified elsewhere, unspecified severity, without behavioral disturbance, psychotic disturbance, mood disturbance, and anxiety; F79 Unspecified intellectual disabilities; F31.12 Bipolar disorder, current episode manic without psychotic features, moderate | CPT/HCPCS: 99213; 99214 ==

== ENCOUNTER → 2022-07-27 10:01 | Outpatient (BNVA) | payer MEDICARE, MEDICAID, SELFPAY | PROVIDERS: PCP Internal Medicine; Visit Provider Family Medicine | DX: R50.9 Fever, unspecified (principal); J18.9 Pneumonia, unspecified organism | CPT/HCPCS: 71046; 87426 ==

== ENCOUNTER 2022-08-21 09:27 | Outpatient (CLI) | payer MEDICARE, MEDICAID, SELFPAY ==
--- NOTE | 2022-08-21 09:36 | MM_ITS ---
WS: [id number] BILATERAL SCREENING DIGITAL MAMMOGRAM WITH CAD HISTORY: SCREENING COMPARISON: 07/06/2021, 05/27/2020. Bilateral CC and MLO views with tomosynthesis and synthetic mammography submitted. Computer aided det ection analyzed. Technically difficult evaluation due to patient's condition. Breast composition: There are scattered areas of fibroglandular density. No suspicious masses, microc alcifications or architectural distortion. Benign calcifications in each breast. No mass. MM/[place] [id number] IMPRESSION: BI-RADS: 2-Benign FOLLOW UP: 1 Year Follow-up
== END 2022-08-21 09:28 | disposition home or self-care (01) ==
LOC: RAD 09:28
PROVIDERS: PCP Family Medicine; Visit Provider Internal Medicine
DX: Z12.31 Encounter for screening mammogram for malignant neoplasm of breast (principal)
CPT/HCPCS: 77067

== ENCOUNTER → 2022-11-16 10:11 | Outpatient (BNVA) | payer MEDICARE, MEDICAID, SELFPAY | PROVIDERS: PCP Family Medicine; Visit Provider Specialist | DX: G31.83 Neurocognitive disorder with Lewy bodies (principal); F02.B11 Dementia in other diseases classified elsewhere, moderate, with agitation | CPT/HCPCS: 99213 ==

== ENCOUNTER 2023-01-14 18:54 | Emergency (ER) | payer MEDICARE, MEDICAID, SELFPAY ==
[2023-01-14 18:57] VITALS: BP 155/89; PULSE 101; RESP 18; O2SAT 95; BMI 46.4
--- NOTE | 2023-01-14 19:26 | CTR_ITS ---
PROCEDURE INFORMATION: Exam: CT Head Without Contrast Exam date and time: 01/14/2023 7:34 PM Age: 57 years old Clinical indication: Injury or trauma; Fall; Blunt trauma (contusions or hematomas); Patient HX: Patient tripped and fell at home striking head onto a desk. History of lewy body dementia. ; Additional info: Head injury TECHNIQUE: Imaging protocol: Computed tomography of the head without contrast. Radiation optimization: All CT scans at this facility use at least one of these dose optimization techniques: automated exposure control; mA and/or kV adjustment per patient size (includes targeted exams where dose is matched to clinical indication); or iterative reconstruction. REPORTING DATA: Count of CT and Cardiac NM exams in prior 12 months: This patient has received 0 known CTs and 0 known cardiac nuclear medicine studies in the 12 months prior to the current study. COMPARISON: CT head wo con* [id number] 01/02/2021 11:14 AM RADIATION DOSE METRICS: Total DLP (mGy-cm): 1006.98 FINDINGS: Brain: Minimal periventricular white matter hypodense changes, most likely related to chronic microvascular ischemic disease. Mild brain parenchymal atrophy. No hemorrhage. No mass effect or midline shift. Cerebral ventricles: No pathologic hydrocephalus. Paranasal sinuses: Visualized sinuses are unremarkable. No fluid levels. Mastoid air cells: Visualized mastoid air cells are well aerated. Bones/joints: Unremarkable. No acute fracture. Soft tissues: Unremarkable. CT/CT head wo con* [id number] IMPRESSION: No acute intracranial findings.
[2023-01-14 20:08] VITALS: BP 163/86; PULSE 88; RESP 18; O2SAT 94
[2023-01-14] MEDS: LORazepam 1 mg Tablet PO (20:09)
--- NOTE | 2023-01-14 20:10 | W.ED.FALL ---
HPI - Fall General: Chief Complaint: Fall Stated Complaint: FACE TRAUMA S/P FALL Time Seen by Provider: 01/14/23 19:00 Source: patient and other (Facility caregivers) Limitations: altered mental status (Baseline dementia, some speech difficulty) History of Present Illness: Patient presents emergency department today brought by ambulance and accompanied by her facility caregivers for evaluation treatment of injury sustained to her lip and nose after a fall today. They indicated the patient had a mechanical fall where she impacted her face on the corner of a desk. Patient has a small laceration of the left lower lip, abrasion of the left upper lip, and a laceration sustained to the left side of the nose. They indicated no loss of consciousness and patient has not had any vomiting since the injury. Patient also had bedside evaluation by Dr. Garcia. Review of Systems General: Reports: 10 or more systems reviewed and unremarkable except in HPI and below PFSH ED PFSH: Medical History Hematochezia Lewy body dementia Mental deficiency Social History Smoking and tobacco status: never smoked Alcohol intake: never Substance/Drug Use: never Caregiver/support person: Yes Housing: Assisted Living Facility Female Reproductive History: Spontaneous abortions: No Physical Exam Const: COMMON NORMALS: no acute distress, patient oriented x3 and alert HENMT: OTHER: Patient has trauma noted to the bridge of the nose however, no signs of a septal hematoma no signs of epistaxis. Patient shows no signs of any acute dental trauma. Eye: COMMON NORMALS: Equal, round and reactive pupils present, EOMs intact bilaterally and conjunctivae normal CONJUNCTIVA: Yes conjunctivae normal PUPIL: Yes Equal, round and reactive pupils present Neck/C-Spine: COMMON NORMALS: no JVD OTHER: Patient demonstrates independent full range of motion of the neck without difficulty or pain. Lymph: LYMPHATIC: no lymphadenopathy noted Resp: COMMON NORMALS: normal respiratory effort, No retractions and No use of accessory muscles Cardio: COMMON NORMALS: no JVD and regular rate RATE: regular rate : COMMON NORMALS: Yes no CVA tenderness BLADDER/KIDNEY EXAM: Yes no CVA tenderness Back/Pelvis: COMMON NORMALS: no CVA tenderness, thoracic and lumbar spine normal to inspection and thoraco-lumbar ROM normal Extremity: COMMON NORMALS: normal to inspection, full ROM and no pedal edema Neuro: COMMON NORMALS: patient oriented x3 SENSORIUM/ORIENTATION: Yes alert Skin: COMMON NORMALS: no rashes or lesions noted and turgor normal NARRATIVE SKIN EXAM: Patient is a small laceration to the left lower lip as well as a superficial abrasion to the left upper lip. No active bleeding is from the site. Patient has a flap laceration to the left side of her nose with minimal oozing of blood. GENERAL SKIN EXAM: no rashes or lesions noted and turgor normal Procedures Laceration Laceration 1: Site: face (Nose) Side (If applicable): left Size (cm): 1 Description: flap Depth: simple, single layer Local Anesthetic: lidocaine 1% and other anesthetic (Topical 2% lidocaine jelly) Amount of anesthesia used (mL): 1.5 Pre-repair: wound explored and irrigated extensively Skin layer closed with: vicryl Size (cm): 6-0 Number of sutures: 3 Technique: simple, interrupted Course Vital Signs: Vital signs: Vital Signs Pulse Rate 91 01/14/23 21:29 Respiratory Rate 18 01/14/23 21:29 Blood Pressure 127/97 01/14/23 21:29 Pulse Oximetry 93 01/14/23 21:29 Oxygen Delivery Me thod Room Air 01/14/23 18:57 MDM - Fall Medical Decision Making Patient presents to the emergency department today accompanied by her facility caregivers for evaluation of treatment for injury sustained after a mechanical fall today. Patient has not had any vomiting and denies any reports of headache. Caregivers indicates she seems to be at her typical baseline. Physical examination primarily reveals skin wounds including various abrasions and lacerations on the face. Patient also had a second physical examination by Dr. Garcia who agreed that at this time, examination indicates need for nasal laceration repair and then continued monitoring by her caregivers. Prior to the suturing, caregivers recommended providing the patient her normal dose of lorazepam to help calm her nerves and, Dr. Garcia agreed. They also applied 2% lidocaine jelly to the wound. Patient received approximately 1-1/2 cc of 1% lidocaine injected at the wound prior to the procedure. Patient easily tolerated her procedure. She received 3 nonabsorbable, 6-0 sutures resulting in great wound edge approximation and resolution of any oozing of blood. Wound care instructions and suture care instructions provided to the patient's caregivers with instructions to have sutures removed in approximately 5 days. Went over return precautions for neurological changes or concerns of infection. Differential Diagnosis Likely syncope and concussion without loss of consciousness (Facial contusion, facial lacerations) Lab Data Radiology Impressions Head CT 01/14/23 19:26 IMPRESSION: No acute intracranial findings. Discharge Plan Discharge Patient Disposition: Home Clinical Impression: Contusion of face, Fall, Laceration of lip Condition: Stable Prescriptions: No Action carbamide peroxide [Debrox] 6.5 % drops See Rx Instructions .ROUTE .COMPLEX Rx Instructions: both ear canals bid@08:00,20:00 for 4 days per month diphenhydramine HCl 50 mg capsule 50 mg PO Q6H PRN (Reason: itching) ammonium lactate [AmLactin] 12 % lotion 1 applic TOPICAL BID@,20 Rx Instructions: apply to thickened area on feet amoxicillin-pot clavulanate 875-125 mg tablet 1 tab PO BID Qty: 20 0RF bismuth subsalicylate [Pepto-Bismol] 262 mg/15 mL suspension 524 mg PO Q4H PRN (Reason: unknown) Qty: 1200 3RF topiramate 25 mg tablet See Rx Instructions .ROUTE .COMPLEX Qty: 30 5RF Dose Instruction: TAKE ONE TABLET BY MOUTH AT BEDTIME FOR BIPOLAR Rx Instructions: TAKE ONE TABLET BY MOUTH AT BEDTIME FOR BIPOLAR trihexyphenidyl 2 mg tablet See Rx Instructions .ROUTE .COMPLEX Qty: 60 5RF Dose Instruction: TAKE ONE TABLET BY MOUTH TWICE DAILY FOR TARDIVE DYSKINESIA Rx Instructions: TAKE ONE TABLET BY MOUTH TWICE DAILY FOR TARDIVE DYSKINESIA guaifenesin [Tussin Mucus-Chest Congestion] 100 mg/5 mL liquid See Rx Instructions .ROUTE .COMPLEX Qty: 118 5RF Dose Instruction: TAKE ONE TEASPOONFUL BY MOUTH EVERY 4 HOURS NEEDED FOR COUGH Rx Instructions: TAKE ONE TEASPOONFUL BY MOUTH EVERY 4 HOURS NEEDED FOR COUGH diphenhydramine HCl [Banophen] 25 mg capsule See Rx Instructions .ROUTE .COMPLEX Qty: 60 5RF Dose Instruction: TAKE TWO CAPSULES BY MOUTH EVERY 6 HOURS NEEDED FOR POST NASAL DRIP/ITCHING Rx Instructions: TAKE TWO CAPSULES BY MOUTH EVERY 6 HOURS NEEDED FOR POST NASAL DRIP/ITCHING acetaminophen 325 mg tablet See Rx Instructions .ROUTE .COMPLEX Qty: 120 5RF Dose Instruction: TAKE TWO TABLETS BY MOUTH EVERY 4 HOURS NEEDED URBINA/ELEVATED FOR HIGH TEMPERATURE >100 Rx Instructions: TAKE TWO TABLETS BY MOUTH EVERY 4 HOURS NEEDED URBINA/ELEVATED FOR HIGH TEMPERATURE >100 venlafaxine 75 mg capsule,extended release 24hr See Rx Instructions .ROUTE .COMPLEX Qty: 60 5RF Dose Instruction: TAKE ONE CAPSULE BY MOUTH TWICE DAILY FOR bipolar Rx Instructions: TAKE ONE CAPSULE BY MOUTH TWICE DAILY FOR bipolar sulfacetamide sodium (acne) 10 % suspension See Rx Instructions .ROUTE .COMPLEX Qty: 118 5RF Dose Instruction: APPLY TOPICALLY TO SCALP TWICE DAILY NEEDED FOR *USE IF BUMPS ARE PRESENT* Rx Instructions: APPLY TOPICALLY TO SCALP TWICE DAILY FOR *USE IF BUMPS ARE PRESENT* fluticasone propionate 50 mcg/actuation spray,suspension 2 spray intranasal DAILY Qty: 48 5RF Rx Instructions: administer into each nostril olanzapine 20 mg tablet See Rx Instructions .ROUTE .COMPLEX Qty: 30 5RF Dose Instruction: Take 1/2 tablet BY MOUTH TWICE DAILY Rx Instructions: Take 1/2 tablet BY MOUTH TWICE DAILY azithromycin [Zithromax Z-Sachin] 250 mg tablet See Rx Instructions PO .COMPLEX Qty: 6 0RF Rx Instructions: For 250 mg dose pack: take 500 mg today (day 1), then 250 mg for 4 days (days 2-5) PO lamotrigine 200 mg tablet See Rx Instructions .ROUTE .COMPLEX Qty: 60 5RF Dose Instruction: TAKE ONE TABLET BY MOUTH TWICE DAILY AT 8AM AND 8PM Rx Instructions: TAKE ONE TABLET BY MOUTH TWICE DAILY AT 8AM AND 8PM famotidine 40 mg tablet See Rx Instructions .ROUTE .COMPLEX Qty: 30 3RF Dose Instruction: TAKE ONE TABLET BY MOUTH DAILY AT 8PM Rx Instructions: TAKE ONE TABLET BY MOUTH DAILY AT 8PM lorazepam 1 mg tablet See Rx Instructions .ROUTE .COMPLEX PRN (Reason: anxiety) Qty: 120 3RF Rx Instructions: 2 tabs 0800 and 1400, and two tabs Q6H for agitation alum-mag hydroxide-simeth 200-200-20 mg/5 mL Suspension 30 ml PO PRN Discharge Orders: Discharge ED (Routine); Ordered 01/14/23 Ordered By: Bernie Rome Referrals: [place],Christopher W, DO [Primary Care Provider] - Discharge Diet: Usual diet Discharge Activity: Increase activity as tolerated Patient Instructions: Care For Your Stitches (ED) Activity Restrictions/Additional Instructions: Head CT in the emergency department revealed no acute intracranial injury. After discussing with the doctor, we will allow the lip laceration to heal on its own as they do tend to heal quickly and should be significantly improved within 4 to 5 days. You may wish to do some salt water rinses and irrigation to the area. He may notice granulation tissue that is a beige or light yellow color developing within the wound. This is good healing tissue and we do not recommend scrubbing the material out of the wound or trying to remove it. The patient received 3, nonabsorbable sutures to repair the nasal laceration. The sutures need to be removed in approximately 5 days. You can have this done at any medical facility, patient's primary care, urgent care, or back here in the emergency department. We do recommend washing the wound once to twice a day with warm water and a mild soap. Be extremely careful not to let the suture ends catch and pull on linens and clothing items. Coding Level of Care Code ED School Program Director for Desmond Lo
[2023-01-14 21:29] VITALS: BP 127/97; PULSE 91; RESP 18; O2SAT 93
== END 2023-01-14 21:30 | disposition home or self-care (01) ==
PROVIDERS: Emergency Provider Physician Assistant; PCP Family Medicine
DX: S01.511A Laceration without foreign body of lip, initial encounter (principal); S00.83XA Contusion of other part of head, initial encounter; S01.21XA Laceration without foreign body of nose, initial encounter; G31.83 Neurocognitive disorder with Lewy bodies; F02.80 Dementia in other diseases classified elsewhere, unspecified severity, without behavioral disturbance, psychotic disturbance, mood disturbance, and anxiety; W18.39XA Other fall on same level, initial encounter
CPT/HCPCS: 12011; 70450; 99284

== ENCOUNTER 2023-05-22 17:37 | Emergency (ER) | payer MEDICARE, MEDICAID, SELFPAY ==
[2023-05-22 17:52] VITALS: BP 107/75; PULSE 105; RESP 16; TEMP 36.4; O2SAT 97
--- NOTE | 2023-05-22 20:54 | W.ED.FALL ---
HPI - Fall General: Chief Complaint: Fall Stated Complaint: fall Time Seen by Provider: 05/22/23 19:08 History of Present Illness: Patient presents to the ER with complaints of tripping on her feet falling and hitting her head in the bathroom. There was no loss of consciousness. Patient is not on blood thinners. Patient has small abrasion on her forehead. Patient denies any pain at this moment. Patient is her baseline normal. Review of Systems General: Reports: 10 or more systems reviewed and unremarkable except in HPI and below PFSH ED PFSH: Medical History Hematochezia Lewy body dementia Mental deficiency No pertinent past medical history neghx: htn,dm,thyroid,dvt/pe PCP: Dr. Meza Surgical History History of tubal ligation Family History Other Family history unknown Female Reproductive History: Spontaneous abortions: No Physical Exam Const: COMMON NORMALS: no acute distress, average body habitus, patient oriented x3, no limitations, healthy appearing, alert and well nourished HENMT: COMMON NORMALS: normocephalic, hearing grossly normal bilaterally, external ears normal, Normal external nose present and moist oral mucous membranes; head/scalp not atraumatic (Small abrasion anterior scalp.) HEAD & SCALP: normocephalic; not atraumatic (Small abrasion anterior scalp.) NOSE: Normal external nose present EXTERNAL EAR: Yes external ears normal Eye: COMMON NORMALS: Equal, round and reactive pupils present, EOMs intact bilaterally, conjunctivae normal and no scleral icterus CONJUNCTIVA: Yes conjunctivae normal PUPIL: Yes Equal, round and reactive pupils present Neck/C-Spine: COMMON NORMALS: full ROM, no lymphadenopathy, supple, no meningeal signs, no JVD and Thyroid normal THYROID: Thyroid normal Chest: COMMONS NORMALS: normal inspection of the chest and normal palpation of entire chest wall Resp: COMMON NORMALS: normal respiratory effort, No retractions, No use of accessory muscles and clear to auscultation bilaterally AUSCULTATION: clear to auscultation bilaterally Cardio: COMMON NORMALS: no JVD, regular rate, regular rhythm, S1 normal heart sound present, S2 normal heart sound present, No gallops present (Cardio), No clicks present (Cardio), No murmurs present (Cardio) and No rub (Cardio) RATE: regular rate RHYTHM: regular rhythm HEART SOUNDS: S1 normal heart sound present and S2 normal heart sound present GI: COMMON NORMALS: Normal to inspection, nondistended, normoactive bowel sounds present, Soft to palpation, non-tender, No hepatosplenomegaly present, no masses and no bruits PALPATION: Yes Soft to palpation and Yes No hepatosplenomegaly present : COMMON NORMALS: Yes no CVA tenderness BLADDER/KIDNEY EXAM: Yes no CVA tenderness Back/Pelvis: COMMON NORMALS: no CVA tenderness Neuro: COMMON NORMALS: patient oriented x3 SENSORIUM/ORIENTATION: Yes alert MENINGEAL SIGNS: Yes no meningeal signs Course Vital Signs: Vital signs: Vital Signs Temperature 97.6 F 05/22/23 17:52 Pulse Rate 105 H 05/22/23 17:52 Respiratory Rate 16 05/22/23 17:52 Blood Pressure 107/75 05/22/23 17:52 Pulse Oximetry 97 05/22/23 17:52 Oxygen Delivery Me thod Room Air 05/22/23 17:52 MDM - Fall Medical Decision Making Patient was walking to the bathroom tripped on her feet and fell and hit her head. Patient did not suffer from loss of consciousness, is not on any type of anticoagulation, and is back to her baseline. Patient has no neurodeficit. It is not felt that a head CT is warranted. Patient be discharged back to her facility. Discharge Plan Discharge Patient Disposition: Home Clinical Impression: Abrasion of scalp Qualifiers: Encounter type: initial encounter Qualified Code(s): S00.01XA - Abrasion of scalp, initial encounter Contusion of head Qualifiers: Encounter type: initial encounter Contusion of head detail: scalp Qualified Code(s): S00.03XA - Contusion of scalp, initial encounter Condition: Stable Prescriptions: No Action carbamide peroxide [Debrox] 6.5 % drops See Rx Instructions .ROUTE .COMPLEX Rx Instructions: both ear canals bid@08:00,20:00 for 4 days per month diphenhydramine HCl 50 mg capsule 50 mg PO Q6H PRN (Reason: itching) ammonium lactate [AmLactin] 12 % lotion 1 applic TOPICAL BID@08,20 Rx Instructions: apply to thickened area on feet (DME) Wheelchair 1 See Rx Instructions .Route .MEDSUPPLY Qty: 1 0RF Rx Instructions: As directed bismuth subsalicylate [Pepto-Bismol] 262 mg/15 mL suspension 524 mg PO Q4H PRN (Reason: unknown) Qty: 1200 3RF topiramate 25 mg tablet See Rx Instructions .ROUTE .COMPLEX Qty: 30 5RF Dose Instruction: TAKE ONE TABLET BY MOUTH AT BEDTIME FOR BIPOLAR Rx Instructions: TAKE ONE TABLET BY MOUTH AT BEDTIME FOR BIPOLAR trihexyphenidyl 2 mg tablet See Rx Instructions .ROUTE .COMPLEX Qty: 60 5RF Dose Instruction: TAKE ONE TABLET BY MOUTH TWICE DAILY FOR TARDIVE DYSKINESIA Rx Instructions: TAKE ONE TABLET BY MOUTH TWICE DAILY FOR TARDIVE DYSKINESIA guaifenesin [Tussin Mucus-Chest Congestion] 100 mg/5 mL liquid See Rx Instructions .ROUTE .COMPLEX Qty: 118 5RF Dose Instruction: TAKE ONE TEASPOONFUL BY MOUTH EVERY 4 HOURS NEEDED FOR COUGH Rx Instructions: TAKE ONE TEASPOONFUL BY MOUTH EVERY 4 HOURS NEEDED FOR COUGH diphenhydramine HCl [Banophen] 25 mg capsule See Rx Instructions .ROUTE .COMPLEX Qty: 60 5RF Dose Instruction: TAKE TWO CAPSULES BY MOUTH EVERY 6 HOURS NEEDED FOR POST NASAL DRIP/ITCHING Rx Instructions: TAKE TWO CAPSULES BY MOUTH EVERY 6 HOURS NEEDED FOR POST NASAL DRIP/ITCHING acetaminophen 325 mg tablet See Rx Instructions .ROUTE .COMPLEX Qty: 120 5RF Dose Instruction: TAKE TWO TABLETS BY MOUTH EVERY 4 HOURS NEEDED URBINA/ELEVATED FOR HIGH TEMPERATURE >100 Rx Instructions: TAKE TWO TABLETS BY MOUTH EVERY 4 HOURS NEEDED URBINA/ELEVATED FOR HIGH TEMPERATURE >100 sulfacetamide sodium (acne) 10 % suspension See Rx Instructions .ROUTE .COMPLEX Qty: 118 5RF Dose Instruction: APPLY TOPICALLY TO SCALP TWICE DAILY NEEDED FOR *USE IF BUMPS ARE PRESENT* Rx Instructions: APPLY TOPICALLY TO SCALP TWICE DAILY FOR *USE IF BUMPS ARE PRESENT* fluticasone propionate 50 mcg/actuation spray,suspension 2 spray intranasal DAILY Qty: 48 5RF Rx Instructions: administer into each nostril olanzapine 20 mg tablet See Rx Instructions .ROUTE .COMPLEX Qty: 30 3RF Dose Instruction: TAKE 1/2 TABLET BY MOUTH TWICE DAILY Rx Instructions: TAKE 1/2 TABLET BY MOUTH TWICE DAILY lamotrigine 200 mg tablet See Rx Instructions .ROUTE .COMPLEX Qty: 60 5RF Dose Instruction: TAKE ONE TABLET BY MOUTH TWICE DAILY AT 8AM AND 8PM Rx Instructions: TAKE ONE TABLET BY MOUTH TWICE DAILY AT 8AM AND 8PM lorazepam 1 mg tablet See Rx Instructions .ROUTE .COMPLEX PRN (Reason: anxiety) Qty: 120 3RF Rx Instructions: 2 tabs 0800 and 1400, and two tabs as needed Q6H for agitation venlafaxine 75 mg capsule,extended release 24hr See Rx Instructions .ROUTE .COMPLEX Qty: 60 5RF Dose Instruction: TAKE ONE TABLET BY MOUTH TWICE DAILY Rx Instructions: TAKE ONE TABLET BY MOUTH TWICE DAILY famotidine 40 mg tablet See Rx Instructions .ROUTE .COMPLEX Qty: 30 3RF Dose Instruction: TAKE ONE TABLET BY MOUTH EVERY DAY AT 8pm Rx Instructions: TAKE ONE TABLET BY MOUTH EVERY DAY AT 8pm alum-mag hydroxide-simeth 200-200-20 mg/5 mL Suspension 30 ml PO PRN Discharge Orders: Discharge ED (Routine); Ordered 05/22/23 Ordered By: Yovany Thomas Referrals: Christopher Meza DO [Primary Care Provider] - Patient Instructions: Contusion, Abrasion (ED) Activity Restrictions/Additional Instructions: Please follow-up with your family practice doctor as needed. Coding Level of Care Code ED Professor Of Business for Desmond Lo
[2023-05-22 21:21] VITALS: BP 133/106; RESP 16
== END 2023-05-22 21:22 | disposition home or self-care (01) ==
PROVIDERS: Emergency Provider Emergency Medicine; PCP Family Medicine
DX: S00.01XA Abrasion of scalp, initial encounter (principal); S00.03XA Contusion of scalp, initial encounter; G31.83 Neurocognitive disorder with Lewy bodies; F02.80 Dementia in other diseases classified elsewhere, unspecified severity, without behavioral disturbance, psychotic disturbance, mood disturbance, and anxiety; W01.0XXA Fall on same level from slipping, tripping and stumbling without subsequent striking against object, initial encounter
CPT/HCPCS: 99282

== ENCOUNTER → 2023-05-23 10:00 | Outpatient (BNVA) | payer MEDICARE, MEDICAID, SELFPAY | PROVIDERS: PCP Family Medicine; Visit Provider Specialist | DX: R29.90 Unspecified symptoms and signs involving the nervous system (principal); F31.12 Bipolar disorder, current episode manic without psychotic features, moderate; F79 Unspecified intellectual disabilities; G31.83 Neurocognitive disorder with Lewy bodies; F02.B11 Dementia in other diseases classified elsewhere, moderate, with agitation; Z91.81 History of falling | CPT/HCPCS: 99214 ==

== ENCOUNTER → 2023-05-30 12:43 | Outpatient (BNVA) | payer MEDICARE, MEDICAID, SELFPAY | PROVIDERS: PCP Family Medicine; Visit Provider Nurse Practitioner | DX: S69.91XA Unspecified injury of right wrist, hand and finger(s), initial encounter (principal); X58.XXXA Exposure to other specified factors, initial encounter | CPT/HCPCS: 73130 ==

== ENCOUNTER 2023-09-25 09:56 | Day surgery (SDC) | payer MEDICARE, MEDICAID, SELFPAY ==
[2023-08-17 09:04] LABS: Basophils % 0.4 %; Eosinophils # 0.1 10^3/uL (0.0-0.8); Eosinophils % 2.6 %; Hematocrit 42.8 % (36-47); Lymphocytes # 1.9 10^3/uL (0.8-4.8); Lymphocytes % 35.7 %; Mean Corpuscular HGB Conc 32.2 g/dL (30-55); Mean Corpuscular Hemoglobin 31.6 pg (27-33); Mean Corpuscular Volume 97.9 fl (85-98); Mean Platelet Volume 9.3 fL (7.4-10.4); Monocytes # 0.3 10^3/uL (0.2-0.9); Monocytes % 6.1 %; Neutrophils # 2.99 10^3/uL (1.8-7.7); Nucleated Red Blood Cells % 0 %; Platelet Count 186 10^3/cmm (157-399); Red Blood Count 4.37 10^6/uL (3.85-5.65); Red Cell Distribution Width 12.7 % (12.1-15.1); White Blood Count 5.43 10^3/uL (3.29-11.43)
--- NOTE | 2023-08-17 10:12 | P.ANESASSM_ITS ---
Pre-Anesthetic Assessment Height/Weight: Height 1.5 m Operation Date: 08/21/23 07:00 Proposed Procedures p Pelvic exam under anesthesia [id number] F72(Not Applicable) - Jhonny Young MD Familial anesthetic complications: none Was Beta Go taken within 24 hours: N/A Was Clonidine taken within 24 hours: N/A Social No alcohol and No tobacco Exam alert, oriented x 3, clear to auscultation bilaterally and regular rate & rhythm Airway Submandibular: within normal limits Cervical ROM: within normal limits Mallampati: Class II Dentition: chipped and full CV/HEM Hypertension Metabolic Obese Neuropsych Anxiety, Bipolar, Depression and Seizure Intellectual disability (very pleasant) Anesthetic Plan ASA status: 3 Anesthesia: General Medications/Allergies Home Medications Medication Instructions Recorded Confirmed Last Taken Type carbamide peroxide 6.5 % ear drops See Rx Instructions .Route .COMPLEX 10/21/19 08/17/23 05/14/20 History (Debrox) diphenhydramine HCl 50 mg capsule 50 mg PO Q6H PRN itching 10/21/19 08/17/23 Unknown History aluminum-mag hydroxide-simethicone 30 ml PO PRN 01/02/21 08/17/23 Unknown History 200 mg-200 mg-20 mg/5 mL oral susp bismuth subsalicylate 262 mg/15 mL 524 mg (30 mL) PO Q4H PRN unknown 11/02/21 08/17/23 Unknown Rx oral suspension (Pepto-Bismol) #1,200 mL fluticasone propionate 50 2 spray intranasal DAILY #48 grams 07/24/22 08/17/23 Unknown Rx mcg/actuation nasal spray,suspension Wheelchair #1 ea 01/25/23 08/17/23 Unknown Rx lorazepam 1 mg tablet See Rx Instructions .Route 05/01/23 08/17/23 Unknown Rx .COMPLEX PRN anxiety #120 tabs lamotrigine 150 mg tablet 150 mg PO BID #60 tabs 05/23/23 08/17/23 Unknown Rx (Lamictal) amlodipine 2.5 mg tablet 2.5 mg PO DAILY #30 tabs 08/13/23 08/17/23 Unknown Rx Amlactin Cream Foot Therapy 85gm 1 applic topical BID 08/17/23 08/17/23 Unknown History acetaminophen 325 mg tablet 650 mg PO Q4-5H 08/17/23 08/17/23 Unknown History diphenhydramine HCl 25 mg capsule 50 mg PO DIRECTED 08/17/23 08/17/23 Unknown History (Banophen) famotidine 40 mg tablet 40 mg PO QPM 08/17/23 08/17/23 Unknown History guaifenesin 100 mg/5 mL oral liquid 100 mg PO Q4-5H 08/17/23 08/17/23 Unknown History olanzapine 20 mg tablet 10 mg PO BID 08/17/23 08/17/23 Unknown History sulfacetamide sodium (acne) 10 % 1 applic topical BID 08/17/23 08/17/23 Unknown History lotion (suspension) trihexyphenidyl 2 mg tablet 2 mg PO BID 08/17/23 08/17/23 Unknown History venlafaxine 75 mg capsule,extended 75 mg PO BID 08/17/23 08/17/23 Unknown History release 24 hr Allergies Allergy/AdvReac Type Severity Reaction Status Date / Time No Known Allergies Allergy Verified 08/13/23 13:55 PFSH Anesthesia Medical History No pertinent past medical history neghx: htn,dm,thyroid,dvt/pe PCP: Dr. Meza Hematochezia Mental deficiency Lewy body dementia Surgical History History of tubal ligation Family History Other Family history unknown Female Reproductive History Spontaneous abortions: No Data Anesthesia 08/17/23 08:40 Short CBC 08/17/23 Range/Units 08:40 WBC 5.43 (3.29-11.43) 10^3/uL Hgb 13.80 (11.27-16.99) g/dL Hct 42.8 (36-47) % MCV 97.9 (85-98) fl Plt Count 186 (157-399) 10^3/cmm Neut % (Auto) 55.0 % Neut # (Auto) 2.99 (1.8-7.7) 10^3/uL Cardiac Studies: 2 No Data to Display
[2023-09-25] MEDS: sodium chloride 0.9% 1,000 ML 30 ML IV (11:09)
[2023-09-25 11:10] VITALS: BP 173/90; PULSE 89; RESP 18; TEMP 36.3; O2SAT 95
[2023-09-25 11:14] VITALS: BMI 33.9
--- NOTE | 2023-09-25 12:26 | P.ANESUD_ITS ---
Pre-Anesthetic Update Pre-Anesthetic Assessment: Date of Surgery/Procedure: 09/25/23 Preop Kamilla gnosis: mental disability Proposed Procedure: Operation Date: 09/25/23 11:20 Proposed Procedures p Pelvic exam under anesthesia [id number] F79(Not Applicable) - Jhonny Young MD Any changes to Pre-Anesthetic Assessment?: No Last Intake: Intake Last Liquid Date 09/25/23 Last Liquid Time 07:30 Last Solid Date 09/24/23 Last Solid Time 17:30 Vitals: Temperature 97.3 F L 09/25/23 11:10 Temperature Source Temporal Artery S can 09/25/23 11:10 Pulse Rate 89 09/25/23 11:10 Respiratory Rate 18 09/25/23 11:10 Blood Pressure 173/90 09/25/23 11:10 Blood Pressure Renetta n 117 09/25/23 11:10 Pulse Oximetry 95 09/25/23 11:10 Oxygen Delivery Me thod Room Air 09/25/23 11:14 Exam: Pre-Anes Outpt Exam: alert, oriented x 3, clear to auscultation bilaterally and regular rate & rhythm Cardiac Studies: No Data to Display
--- NOTE | 2023-09-25 13:21 | W.PM.OPSUD ---
Surgery/Procedure H&P Update DATE OF PROCEDURE: September 25, 2023 DATE H&P PERFORMED: 09/17/23 H&P UPDATE INFORMATION: I have reviewed H&P completed within last 30 days, I have examined patient prior to procedure and No changes to prior documentation PREOP DIAGNOSIS: mental disability PLANNED PROCEDURE: Operation Date: 09/25/23 11:20 Proposed Procedures p Pelvic exam under anesthesia [id number] F79(Not Applicable) - Jhonny Young MD
--- NOTE | 2023-09-25 13:50 | PC.NURSE ---
Pap smear ordered in regular orders outside of operative chart.
[2023-09-25 13:58] VITALS: BP 138/89; PULSE 91; RESP 20; TEMP 36.6; O2SAT 97
[2023-09-25 14:03] VITALS: BP 163/100; PULSE 95; RESP 18; O2SAT 98
[2023-09-25 14:08] VITALS: BP 145/96; PULSE 96; RESP 18; O2SAT 97
[2023-09-25 14:13] VITALS: BP 144/98; PULSE 97; RESP 18; TEMP 36.7; O2SAT 97
[2023-09-25 14:16] VITALS: BP 144/102; PULSE 96; RESP 18; TEMP 36.1; O2SAT 97
--- NOTE | 2023-09-25 14:39 | PM.OP ---
Operative Report Date of procedure: September 25, 2023 Pre-op diagnosis: Mentally disabled. Exam under anesthesia Post-op diagnosis: same Procedure done: Exam under anesthesia Surgeon: Jhonny Young MD Estimated blood loss (mL): 0 Complications: None Findings: Normal pelvic exam Procedure: After assuring informed consent, the patient was taken to the operating room and placed in the supine position, given general anesthesia, and prepped. Patient was placed in dorsal lithotomy position. The abdomen, vulva and vagina were prepped. A time out procedure was performed. The knee exam under anesthesia was as follow. ABDOMEN: Soft, and nondistended. Normal bowel sounds are auscultated. No organomegaly is appreciated. No masses are palpated. No tympany is noted on percussion. No hepatosplenomegaly and no hernias are noted. RECTAL: Normal tone. No masses. Soft, brown stool in the vault. GENITOURINARY: External genitalia without erythema, exudate or discharge. Vaginal vault is without discharge. Cervix is of normal color without lesion. The os is closed. Pap cytology obtained. There is no bleeding noted. Uterus is noted to be of normal size. No cervical motion tenderness is seen. No masses are palpated. The adnexa are without masses. EXTREMITIES: No clubbing, cyanosis or edema. The patient tolerated the procedure well and was taken to the recovery room, awake and in stable condition.
--- NOTE | 2023-09-25 14:45 | ANE.PACU2 ---
Inpatient post-anesthesia follow up: Airway intact: Yes Vital signs: Temperature 97.0 F Pulse Rate 96 Respiratory Rate 18 Blood Pressure 144/102 Pulse Oximetry 97 Oxygen Delivery Me thod Room Air Oxygen Flow Rate Fraction of Inspir ed Oxygen Hydration adequate: Yes Nausea and vomiting: No Pain level: 1 Mental status: Baseline
[2023-09-27 13:05] LABS: Source: Cervix
== END 2023-09-25 14:45 | disposition home health service (06) ==
PROVIDERS: PCP Family Medicine; Visit Provider Obstetrics & Gynecology
PROC: 8E0UXY7 Examination of Female Reproductive System (ICD-10-PCS; CPT 57410; principal; 2023-09-25 11:10)
DX: F79 Unspecified intellectual disabilities (principal); I10 Essential (primary) hypertension; E66.9 Obesity, unspecified; Z68.33 Body mass index [BMI] 33.0-33.9, adult; G31.83 Neurocognitive disorder with Lewy bodies; F02.80 Dementia in other diseases classified elsewhere, unspecified severity, without behavioral disturbance, psychotic disturbance, mood disturbance, and anxiety
CPT/HCPCS: 57410; 85025; 87624; J2250; J2704; J7030

== ENCOUNTER 2023-09-28 09:35 | Outpatient (CLI) | payer MEDICARE, MEDICAID, SELFPAY ==
--- NOTE | 2023-09-28 09:40 | MM_ITS ---
WS: [id number] BILATERAL SCREENING DIGITAL MAMMOGRAM WITH CAD HISTORY: Z12.31 - Encounter for screening mammogram for malignant ... COMPARISON: None available. Bilateral CC and MLO views mammography submitted. Computer aided detection analyzed. Breast composition: There are scattered areas of fibroglandular density. No suspicious masses, microc alcifications or architectural distortion. Bilateral breast calcifications are identified and benign. No interval change. IMPRESSION: MM/[place] [id number] BI-RADS: 2-Benign FOLLOW UP: 1 Year Follow-up
== END 2023-09-28 09:36 | disposition home or self-care (01) ==
LOC: RAD 09:35
PROVIDERS: PCP Family Medicine; Visit Provider Nurse Practitioner Women's Health
DX: Z12.31 Encounter for screening mammogram for malignant neoplasm of breast (principal); R92.323 Mammographic fibroglandular density, bilateral breasts; R92.1 Mammographic calcification found on diagnostic imaging of breast
CPT/HCPCS: 77067

== ENCOUNTER → 2023-10-12 15:08 | Outpatient (BNVA) | payer MEDICARE, MEDICAID, SELFPAY | PROVIDERS: PCP Family Medicine; Visit Provider Specialist | DX: R29.90 Unspecified symptoms and signs involving the nervous system (principal); F31.12 Bipolar disorder, current episode manic without psychotic features, moderate; F79 Unspecified intellectual disabilities; G31.83 Neurocognitive disorder with Lewy bodies; F02.B11 Dementia in other diseases classified elsewhere, moderate, with agitation; Z91.81 History of falling | CPT/HCPCS: 99214 ==

== ENCOUNTER 2023-12-22 18:36 | Emergency (ER) | payer MEDICARE, MEDICAID, SELFPAY ==
[2023-12-22 18:42] VITALS: BP 149/89; PULSE 107; RESP 19; TEMP 36.9; O2SAT 93; BMI 34.0
[2023-12-22 19:02] VITALS: BP 118/89; PULSE 99; RESP 16; O2SAT 94
--- NOTE | 2023-12-22 19:09 | XRR_ITS ---
PROCEDURE INFORMATION: Exam: XR Left Knee Exam date and time: 12/22/2023 7:16 PM Age: 58 years old Clinical indication: Injury or trauma; Blunt trauma; Patient HX: Fall at home. C/O left knee pain. ; Additional info: Fall knee pain TECHNIQUE: Imaging protocol: Radiologic exam of the left knee. Views: 3 views. COMPARISON: No relevant prior studies available. FINDINGS: Bones/joints: Normal. Soft tissues: Normal. XR/XR knee LT 3V* [id number] IMPRESSION: No acute findings.
--- NOTE | 2023-12-22 19:09 | CTR_ITS ---
PROCEDURE INFORMATION: Exam: CT Head Without Contrast Exam date and time: 12/22/2023 7:25 PM Age: 58 years old Clinical indication: Injury or trauma; Blunt trauma (contusions or hematomas); Patient HX: Fall at home hitting left side of head on floor. History of lewy body dementia. ; Additional info: Fall head inj TECHNIQUE: Imaging protocol: Computed tomography of the head without contrast. Radiation optimization: All CT scans at this facility use at least one of these dose optimization techniques: automated exposure control; mA and/or kV adjustment per patient size (includes targeted exams where dose is matched to clinical indication); or iterative reconstruction. COMPARISON: CT head wo con* [id number] 01/14/2023 7:34 PM RADIATION DOSE METRICS: Total DLP (mGy-cm): 1011.18 FINDINGS: Brain: No hemorrhage. No edema. Moderate diffuse cerebral atrophy and mild sequela of chronic small vessel ischemic disease. No mass effect. Cerebral ventricles: No ventriculomegaly. Paranasal sinuses: Visualized sinuses are unremarkable. No fluid levels. Mastoid air cells: Visualized mastoid air cells are well aerated. Bones/joints: Unremarkable. No acute fracture. Soft tissues: Unremarkable. CT/CT head wo con* [id number] IMPRESSION: No acute intracranial abnormality.
--- NOTE | 2023-12-22 19:09 | XRR_ITS ---
PROCEDURE INFORMATION: Exam: XR Left Hip Exam date and time: 12/22/2023 7:16 PM Age: 58 years old Clinical indication: Injury or trauma; Blunt trauma (contusions or hematomas); Patient HX: Fall at home. C/O left hip pain. ; Additional info: Fall hip pain TECHNIQUE: Imaging protocol: Radiologic exam of the left hip. Views: 2 or 3 views hip with pelvis when performed. COMPARISON: CT abdomen pelvis w con* [id number] 01/02/2021 2:22 PM FINDINGS: Bones/joints: Unremarkable. No acute fracture. Soft tissues: Unremarkable. XR/XR hip LT 2-3V wo/w pel* [id number] IMPRESSION: No acute findings.
--- NOTE | 2023-12-22 19:12 | W.ED.FALL ---
HPI - Fall General: Chief Complaint: Fall Stated Complaint: fall Time Seen by Provider: 12/22/23 18:50 History of Present Illness: 58-year-old female lives in a correction environment. She fell earlier, striking her left side of her head, her shoulder, her left hip and knee. She complains mainly of knee soreness, with some head soreness. The staff there noticed that her left eye, which sometimes has some laziness, had an increased amount of left and upper gaze. She does not complain of facial pain. She was not knocked unconscious. Her mental status seems baseline. Associated symptoms-after fall: Reports headache(s); Denies chest pain Review of Systems Card: Denies: chest pain Resp: Denies: dyspnea GI: Denies: vomiting Neuro: Reports: headache(s); Denies: numbness in extremities or weakness in extremities PFS ED PFSH: Medical History No pertinent past medical history neghx: htn,dm,thyroid,dvt/pe PCP: Dr. Meza Hematkariezbharath Mental deficiency Lewy body dementia Surgical History History of tubal ligation Family History Other Family history unknown Female Reproductive History: Spontaneous abortions: No Physical Exam Const: COMMON NORMALS: no acute distress GENERAL APPEARANCE: cooperative and frail appearing (Mildly); not ill appearing HENMT: COMMON NORMALS: normocephalic, atraumatic and Normal external nose present HEAD & SCALP: normocephalic and atraumatic FACE & SINUS: normal facial exam and other (Mild left parietal tenderness) NOSE: Normal external nose present Eye: OTHER: Pupils roughly equal. There is a left lateral gaze of the left eye at times, that comes back to midline and crosses midline appropriately. Assumed to be her normal amblyopia. Neck/C-Spine: GENERAL: Yes trachea midline Chest: CHEST: Yes Symmetrical chest wall rise Resp: COMMON NORMALS: normal respiratory effort, No use of accessory muscles and clear to auscultation bilaterally AUSCULTATION: clear to auscultation bilaterally Cardio: COMMON NORMALS: regular rate and regular rhythm RATE: regular rate RHYTHM: regular rhythm GI: INSPECTION: Yes abdominal distension PALPATION: No Tenderness to palpation present (GI) and No Guarding due to palpation present (GI) Extremity: NARRATIVE EXTREMITY EXAM: Exam the left upper extremity reveals no shoulder deformity. Minimal tenderness. No bruising or swelling. Exam the left lower extremity reveals some pain on logroll testing. No deformity. No shortening or external rotation. No knee deformity. Mild knee tenderness. Neuro: NAN COMA SCALE: document GCS findings Nan coma scale eye opening: Spontaneous Nan coma scale verbal response: Orientated Nan coma scale motor response: Obey commands [place] coma scale total score: 15 Course Vital Signs: Vital signs: Vital Signs Temperature 98.5 F 12/22/23 18:42 Pulse Rate 99 12/22/23 19:02 Respiratory Rate 16 12/22/23 19:02 Blood Pressure 118/89 12/22/23 19:02 Pulse Oximetry 94 12/22/23 19:02 Oxygen Delivery Me thod Room Air 12/22/23 18:42 MDM - Fall Medical Decision Making 58-year-old female here after a fall. X-rays are negative. Head CT is pending. If negative will allow home. CT negative. Will allow home to return for worsening symptoms. Lab Data Radiology Impressions Head CT 12/22/23 19:09 IMPRESSION: No acute intracranial abnormality. Hip/Pelvis X-Ray 12/22/23 19:09 IMPRESSION: No acute findings. Knee X-Ray 12/22/23 19:09 IMPRESSION: No acute findings. All radiology interpretation(s) finalized by discharge Discharge Plan Discharge Patient Disposition: Home Clinical Impression: At high risk for falls, Contusion of scalp Condition: Stable Prescriptions: No Action carbamide peroxide [Debrox] 6.5 % drops See Rx Instructions .ROUTE .COMPLEX Rx Instructions: both ear canals bid@08:00,20:00 for 4 days per month diphenhydramine HCl 50 mg capsule 50 mg PO Q6H PRN (Reason: itching) lamotrigine [Lamictal] 150 mg tablet 150 mg PO BID Qty: 60 11RF (DME) Wheelchair 1 See Rx Instructions .Route .MEDSUPPLY Qty: 1 0RF Rx Instructions: As directed (DME) Side Rails See Rx Instructions .Route .MEDSUPPLY Qty: 1 0RF Rx Instructions: Please issue and apply side rails to bed due to risk/recurrence of falls, injury prevention, and to assist with mobility. quetiapine [Seroquel] 50 mg tablet 50 mg PO Q6H Qty: 120 3RF Rx Instructions: 1 every 6 hours as needed for agitation bismuth subsalicylate [Pepto-Bismol] 262 mg/15 mL suspension 524 mg PO Q4H PRN (Reason: unknown) Qty: 1200 3RF amlodipine 5 mg tablet 5 mg PO DAILY Qty: 30 11RF trihexyphenidyl 2 mg tablet See Rx Instructions .ROUTE .COMPLEX Qty: 60 5RF Dose Instruction: TAKE ONE TABLET BY MOUTH TWICE DAILY FOR tardive dyskinesia Rx Instructions: TAKE ONE TABLET BY MOUTH TWICE DAILY FOR tardive dyskinesia acetaminophen 325 mg capsule 650 mg PO Q6H PRN (Reason: fever or pain) Qty: 60 0RF Rx Instructions: fever or pain Triple Antibiotic 3.5mg-400 unit- 5,000 unit/gram ointment 1 applic topical .COMPLEX PRN (Reason: For Minor skin irritation) Qty: 14 0RF Rx Instructions: 1 applic topically PRN For Minor skin irritation; Amlactin Cream Foot Therapy 85gm 1 applic topical BID Qty: 85 0RF Rx Instructions: APPLY TO THICKEND AREAS ON FEET TWICE DAILY fluticasone propionate 50 mcg/actuation spray,suspension See Rx Instructions .ROUTE .COMPLEX Qty: 48 3RF Dose Instruction: USE 2 SPRAYS IN EACH NOSTRIL EVERY DAY FOR ALLERGIES Rx Instructions: USE 2 SPRAYS IN EACH NOSTRIL EVERY DAY FOR ALLERGIES lorazepam 1 mg tablet 2 mg PO .0800, 1400 PRN (Reason: anxiety) Qty: 120 0RF Rx Instructions: 2 tabs 0800 and 1400, and two tabs as needed Q6H for agitation alum-mag hydroxide-simeth 200-200-20 mg/5 mL Suspension 30 ml PO PRN guaifenesin 100 mg/5 mL liquid 100 mg PO Q4-5H Rx Instructions: TAKE ONE TEASPOONFUL BY MOUTH EVERY 4 HOURS NEEDED FOR COUGH diphenhydramine HCl [Banophen] 25 mg capsule 50 mg PO DIRECTED Rx Instructions: TAKE TWO CAPSULES BY MOUTH EVERY 6 HOURS NEEDED FOR POST NASAL DRIP/ITCHING olanzapine 20 mg tablet 10 mg PO BID Rx Instructions: Take 1/2 tablet BY MOUTH TWICE DAILY venlafaxine 75 mg capsule,extended release 24hr 75 mg PO BID Rx Instructions: TAKE ONE TABLET BY MOUTH TWICE DAILY famotidine 40 mg tablet 40 mg PO DAILY Rx Instructions: TAKE ONE TABLET BY MOUTH EVERY DAY sulfacetamide sodium (acne) 10 % suspension 1 applic topical BID PRN (Reason: Outbreak) Rx Instructions: APPLY TOPICALLY TO SCALP TWICE DAILY FOR *USE IF BUMPS ARE PRESENT* Discharge Orders: Discharge ED (Routine); Ordered 12/22/23 Ordered By: Dustin Hay Referrals: Christopher Meza DO [Primary Care Provider] - 4-7 days Patient Instructions: Scalp Contusion in Adults (ED), Opioid Safety, Pain Management Activity Restrictions/Additional Instructions: Return for vomiting, mental status changes, change in vision, any other concerning symptoms. Treat pain with Tylenol. See your doctor next week. Coding Level of Care Code ED Regulatory Consultant for Desmond Lo
[2023-12-22] MEDS: oxyCODONE-APAP 5-325 mg Tablet 1 TAB PO (20:03)
== END 2023-12-22 20:06 | disposition home or self-care (01) ==
PROVIDERS: Emergency Provider Emergency Medicine; PCP Family Medicine
DX: S00.03XA Contusion of scalp, initial encounter (principal); G31.83 Neurocognitive disorder with Lewy bodies; F02.80 Dementia in other diseases classified elsewhere, unspecified severity, without behavioral disturbance, psychotic disturbance, mood disturbance, and anxiety; W19.XXXA Unspecified fall, initial encounter; Y92.199 Unspecified place in other specified residential institution as the place of occurrence of the external cause
CPT/HCPCS: 70450; 73502; 73562; 99284

== ENCOUNTER → 2024-01-11 11:29 | Outpatient (BNVA) | payer MEDICARE, MEDICAID, SELFPAY | PROVIDERS: PCP Family Medicine; Visit Provider Specialist | DX: R29.90 Unspecified symptoms and signs involving the nervous system (principal); F31.12 Bipolar disorder, current episode manic without psychotic features, moderate; F79 Unspecified intellectual disabilities; G31.83 Neurocognitive disorder with Lewy bodies; F02.B11 Dementia in other diseases classified elsewhere, moderate, with agitation; Z91.81 History of falling | CPT/HCPCS: 99213 ==

== ENCOUNTER → 2024-07-15 13:00 | Outpatient (BNVA) | payer MEDICARE, MEDICAID, SELFPAY | PROVIDERS: PCP Family Medicine; Visit Provider Specialist | DX: F02.B11 Dementia in other diseases classified elsewhere, moderate, with agitation (principal); R29.90 Unspecified symptoms and signs involving the nervous system; F31.12 Bipolar disorder, current episode manic without psychotic features, moderate; F79 Unspecified intellectual disabilities; G31.83 Neurocognitive disorder with Lewy bodies; Z91.81 History of falling | CPT/HCPCS: 99213 ==

== ENCOUNTER 2024-09-29 13:33 | Outpatient (CLI) | payer MEDICARE, MEDICAID, SELFPAY ==
--- NOTE | 2024-09-29 13:43 | MM_ITS ---
WS: [id number] BILATERAL 2D DIGITAL SCREENING MAMMOGRAPHY WITH CAD CLINICAL INFORMATION: SCREEN HISTORY: Screening mammogram. No current complaints. COMPARISON: 09/28/2023 TECHNIQUE: Bilateral CC and MLO views. FINDINGS: Scattered fibroglandular densities bilaterally. No suspicious focal mass, asymmetry, calcifications, or architectural distortion. No evidence of malignancy. Secretory calcifications. Punctate and lucent centered calcifications. MM/[place] [id number] IMPRESSION: DENSITY: There are scattered areas of fibroglandular density. BI-RADS: 2 - Benign. FOLLOW UP: 1 Year Follow-up Recommend return to annual screening mammography.
== END 2024-09-29 13:34 | disposition home or self-care (01) ==
LOC: RAD 13:34
PROVIDERS: PCP Family Medicine; Visit Provider Family Medicine
DX: Z12.31 Encounter for screening mammogram for malignant neoplasm of breast (principal); R92.323 Mammographic fibroglandular density, bilateral breasts; R92.1 Mammographic calcification found on diagnostic imaging of breast
CPT/HCPCS: 77067

== ENCOUNTER → 2025-01-13 10:33 | Outpatient (BNVA) | payer MEDICARE, MEDICAID, SELFPAY | PROVIDERS: PCP Family Medicine; Visit Provider Specialist | DX: R29.90 Unspecified symptoms and signs involving the nervous system (principal); F31.12 Bipolar disorder, current episode manic without psychotic features, moderate; F79 Unspecified intellectual disabilities; G31.83 Neurocognitive disorder with Lewy bodies; F02.B11 Dementia in other diseases classified elsewhere, moderate, with agitation; Z91.81 History of falling | CPT/HCPCS: 99213 ==

== ENCOUNTER 2025-03-10 13:12 | Outpatient (CLI) | payer MEDICARE, MEDICAID, SELFPAY ==
--- NOTE | 2025-03-10 13:30 | XR_ITS ---
WS: [id number] SCREENING DEXA SCAN [facility] CLINICAL INFORMATION: Z78.0 - Asymptomatic menopausal state COMPARISON: None. FINDINGS: The L1-L4 bone mineral density measures 1.148 g/cm2. This corresponds to a T score score of -0.3 and Z score of 0.5. Left femoral neck bone mineral density measures 0.894 g/cm2. This corresponds to a T score of -0.9 and Z score of -0.3. Right femoral neck bone mineral density measures 0.920 g/cm2. This corresponds to a T score -0.7of and Z score of -0.1. Mean femoral neck bone mineral density measures 0.907 g/cm2. This corresponds to a T score of -0.8 and Z score of -0.2. XR/XR DEXA axial skeleton* [id number] IMPRESSION: Normal bone mineralization. Patient's FRAX calculated 10 year probability for major osteoporotic fracture i s 11.0% and osteoporotic hip fracture is 2.1%.
== END 2025-03-10 13:13 | disposition home or self-care (01) ==
LOC: RAD 13:14
PROVIDERS: PCP Family Medicine; Visit Provider Nurse Practitioner Women's Health
DX: Z78.0 Asymptomatic menopausal state (principal)
CPT/HCPCS: 77080

== ENCOUNTER 2025-06-01 19:39 | Emergency (ER) | payer MEDICARE, MEDICAID, SELFPAY ==
--- OUTSIDE RECORDS SUMMARY | 2022-11-10 11:15 | XMS_ITS | Continuity of Care Document ---
Author Organization [facility] Address [id number] [address] Phone Care Team Providers Care Medical Researcher Name Role Phone Inder FABIÁN Brendon Unavailable Unavailable Allergies, Adverse Reactions, Alerts Substance Reaction Status Criticality No Known allergies Medications Medication Instructions Dosage Effective Dates (start - stop) Status Comments Flonase Allergy Relief 50 mcg/actuation nasal spray,suspension inhale 2 spray by intranasal route every day in each nostril 100 MCG - Active lorazepam 1 mg tablet take 1 tablet by oral route 3 times every day as needed 1 MG - Active Effexor XR 75 mg capsule,extended release take 1 capsule by oral route every day with food 75 MG - Active olanzapine 15 mg tablet take 1 tablet by oral route every day 15 MG - Active Lamictal 200 mg tablet take 1 tablet by oral route 2 times every day 200 MG - Active famotidine 10 mg tablet take 1 tablet by oral route every day as needed 10 MG - Active Topamax 50 mg tablet take 1 tablet by or al route 2 times every day 50 MG - Active Tylenol 325 mg capsule take 1 by oral route every 6 hours 1 - Active Mylanta Coat-Cool 1,200 mg-270 mg-80 mg/10 mL oral suspension - Active Robitussin AC Oral - Active Benadryl 25 mg capsule take 2 capsule by oral route every 4 - 6 hours as needed 50 MG - Active Pepto-Bismol 262 mg/15 mL oral suspension - Active Debrox 6.5 % ear drops instill 5 drop by otic route 2 times every day into affected ear(s) 5.00 drop - Active Procedures Procedure Date Intraoral Periapical First Film Extraction, Erupted Tooth Or Exposed Stacy t (Elevati Limited Oral Evaluation Problem Focused Advance Directives Directive Yes / No Effective Date File Name No Information Encounters Encounter Description Practice Location Reason(s) For Visit Diagnoses Date Provider Providers Copied on Encounter [facility], [id number] [facility], [place], [place], [id number], [place] tel:[phone] [facility] No Information Inder Olivas. [address] [place], [address], [place]. tel:[phone] Referring Provider: Brendon Nevarez, [address] [place], [address]. tel:[phone] Family History Family Member Type Diagnosis Age At Onset No Information Payers Payer name Insurance type Covered republican ID stanley castrejon(s) D Medicaid [id number] Social History Type Description Quantity Date Captured Comments Alcohol Use Details No Caffeine Use Details Unknown Tobacco Use Status Current non-smoker Smoking Status Never smoker Non-Smoking Tobacco Use Details : No Details Available : No Details Available Sex Female Gender Identity Declined To Specify Chief Complaint And Reason For Visit No Information Reason For Referral Reason For Referral No Information History Of Present Illness Encounter Date Complaint History Of Prese nt Illness No Information Functional Status Date Functional Assessmen t No Information Instructions Date Instruction Additional Infor mation No Information Assessments Type Assessment Date No Information Patient Care Teams Name Effective Dates (start - stop) Status Members No Information
[2025-06-01 19:44] VITALS: BP 146/104; PULSE 87; RESP 20; TEMP 36.4; O2SAT 96; BMI 35.9
--- NOTE | 2025-06-01 20:18 | ED_ITS ---
HPI - Fall General: Chief Complaint: Fall Stated Complaint: Fell hit LT side of head Time Seen by Provider: 06/01/25 19:43 Source: patient Mode of arrival: ambulatory Limitations: no limitations History of Present Illness: 60-year-old female states that she had f ell in the bathroom hit her left forehead on the toilet just prior to arrival. She denies any loss conscious but does have a headache she rates 6 out of 10 denies neck pain or any other injuries Associated symptoms-after fall: Reports headache(s); Denies neck pain Related Data Home Medications ?Medication ?Instructions ?Recorded ?Confirmed diphenhydramine HCl 50 mg capsule 50 mg PO Q6H PRN itc anne 10/21/19 05/25/25 acetaminophen 325 mg tablet See Rx Instructions .Route 03/04/25 05/25/25 .COMPLEX PRN aluminum-mag hydroxide-simethicone See Rx Instructions .Route 03/04/25 05/25/25 200 mg-200 mg-20 mg/5 mL oral susp .COMPLEX PRN (Andra-Lanta) ammonium lactate 12 % topical cream 1 applic topical B ID 03/04/25 05/25/25 Previous Rx's ?Medication ?Instructions ?Recorded Wheelchair #1 ea 01/25/23 Side Rails #1 ea 11/22/23 walker #1 ea 06/18/24 amlodipine 5 mg tablet See Rx Instructions .Route 1 10/05/23 .COMPLEX #30 tabs sulfacetamide sodium (acne) 10 % See Rx Instructions . Route 10/21/24 lotion (suspension) .COMPLEX #118 mL neomycin-bacitracn Zn-polymyx 3.5 See Rx Instructions .Route 11/26/24 mg-400 unit-5,000 unit/gram top .COMPLEX #14.2 grams oint (Triple Antibiotic) olanzapine 20 mg tablet See Rx Instructions .Route 0 12/02/24 .COMPLEX #30 tabs polyethylene glycol 3350 17 See Rx Instructions .Route 12/17/24 gram/dose oral powder .COMPLEX #119 grams fluticasone propionate 50 See Rx Instructions .Route 0 12/24/24 mcg/actuation nasal .COMPLEX #48 grams spray,suspension carbamide peroxide 6.5 % ear drops See Rx Instructions .Route 01/13/25 (Ear Wax Removal Drops) .COMPLEX #15 mL lamotrigine 100 mg tablet See Rx Instructions .Route 0 02/10/25 .COMPLEX #180 tabs trihexyphenidyl 2 mg tablet See Rx Instructions .Route 03/03/25 .COMPLEX #60 tabs ketoconazole 2 % shampoo 1 applic topical .Twice week ly 03/09/25 #120 mL bismuth subsalicylate 262 mg/15 mL See Rx Instructions .Route 03/10/25 oral suspension (Pepto-Bismol) .COMPLEX #1,200 mL calcium 600 mg (as 1 cap PO BID #60 caps carbonate)-vitamin D3 12.5 mcg (500 unit) capsule Amlactin Foot Repair Crm 3oz See Rx Instructions .Rout e 03/17/25 .COMPLEX #85 grams venlafaxine 75 mg capsule,extended See Rx Instructions .Route 03/17/25 release 24 hr .COMPLEX #60 caps lorazepam 1 mg tablet 2 mg (2 x 1 mg) PO BID #120 tabs 04/02/25 quetiapine 50 mg tablet See Rx Instructions .Route 0 04/08/25 .COMPLEX #120 tabs diphenhydramine HCl 25 mg capsule See Rx Instructions .Route 04/15/25 (Allergy Relief (diphenhydramine)) .COMPLEX #60 ea famotidine 40 mg tablet See Rx Instructions .Route 0 05/04/25 .COMPLEX #90 tabs guaifenesin 100 mg/5 mL oral liquid See Rx Instruction s .Route 05/13/25 .COMPLEX #118 mL Allergies Allergy/AdvReac Type Severity Reaction Status Date / Time No Known Allergies Allergy Verified 03/04/25 10:34 Review of Systems Musc: Denies: neck pain Neuro: Reports: headache(s) PFSH ED PFSH: Medical History No pertinent past medical history neghx: htn,dm,thyroid,dvt/pe PCP: Dr. Meza Hematochezbharath Mental deficiency Lewy body dementia Surgical History History of tubal ligation Family History Other Family history unknown Social History Smoking and tobacco/nicotine status: never used tobacco/nicotine Female Reproductive History: Spontaneous abortions: No Physical Exam Const: COMMON NORMALS: no acute distress, patient oriented x3 and healthy appearing HENMT: COMMON NORMALS: normocephalic HEAD & SCALP: normocephalic OTHER: abrasion to forehead Eye: COMMON NORMALS: Equal, round and reactive pupils present and EOMs intact bilaterally PUPIL: Yes Equal, round and reactive pupils present Neck/C-Spine: COMMON NORMALS: full ROM and supple CERVICAL SPINE: No pain with cervical ROM and No Cervical spine tenderness Chest: COMMONS NORMALS: normal inspection of the chest Resp: COMMON NORMALS: normal respiratory effort Cardio: COMMON NORMALS: regular rate RATE: regular rate Extremity: COMMON NORMALS: normal to inspection and full ROM Neuro: COMMON NORMALS: patient oriented x3, moves all extremities and no focal motor deficits Psych: COMMON NORMALS: mental status grossly normal, Normal thought process present and cooperative THOUGHT PROCESS: Normal thought process present Skin: COMMON NORMALS: no rashes or lesions noted and no wounds GENERAL SKIN EXAM: no rashes or lesions noted Course Vital Signs: Vital signs: Vital Signs Temperature 97.6 F 06/01/25 19:44 Pulse Rate 87 06/01/25 19:44 Respiratory Rate 20 H 06/01/25 19:44 Blood Pressure 146/104 06/01/25 19:44 Pulse Oximetry 95 06/01/25 20:31 Oxygen Delivery Me thod Room Air 06/01/25 20:31 MDM - Fall Medical Decision Making Patient presents here close head injury after a fall head CT here was negative rest of exam is benign she is at her baseline here did review films with caregiver and patient patient stable for discharge follow-up PCP return if worsening. Medical Records I reviewed the patient's medical records. Lab Data Radiology Impressions Head CT 06/01/25 20:18 IMPRESSION: No acute intracranial abnormality. All radiology interpretation(s) finalized by discharge Discharge Plan Discharge Patient Disposition: Home Clinical Impression: Closed head injury Condition: Stable Prescriptions: No Action diphenhydramine HCl 50 mg capsule 50 mg PO Q6H PRN (Reason: itching) (DME) Wheelchair 1 See Rx Instructions .Route .MEDSUPPLY Qty: 1 0RF Rx Instructions: As directed acetaminophen 325 mg tablet See Rx Instructions .ROUTE .COMPLEX PRN Dose Instruction: TAKE TWO TABLETS (650mg) BY MOUTH EVERY 6 HOURS NEEDED FOR HEADACHE OR FEVER >100 Rx Instructions: TAKE TWO TABLETS (650mg) BY MOUTH EVERY 6 HOURS NEEDED FOR HEADACHE OR FEVER >100 PRN; alum-mag hydroxide-simeth [Andra-Lanta] 200-200-20 mg/5 mL suspension See Rx Instructions .ROUTE .COMPLEX PRN Dose Instruction: take 30 ML BY MOUTH every FOUR hours NEEDED FOR DYSPEPSIA Rx Instructions: take 30 ML BY MOUTH every FOUR hours NEEDED FOR DYSPEPSIA PRN; ammonium lactate 12 % cream 1 applic topical BID (DME) Side Rails See Rx Instructions .Route .MEDSUPPLY Qty: 1 0RF Rx Instructions: Please issue and apply side rails to bed due to risk/recurrence of falls, injury prevention, and to assist with mobility. (DME) walker Misc See Rx Instructions .Route Qty: 1 0RF Rx Instructions: Please issue Front wheeled walker. amlodipine 5 mg tablet See Rx Instructions .ROUTE .COMPLEX Qty: 30 11RF Dose Instruction: TAKE ONE TABLET BY MOUTH EVERY DAY FOR HYPERTENSION. CHECK B/P BEFORE GIVING; NOTIFY RN IF <100/60 OR >130/90 Rx Instructions: TAKE ONE TABLET BY MOUTH EVERY DAY FOR HYPERTENSION. CHECK B/P BEFORE GIVING; NOTIFY RN IF <100/60 OR >130/90 sulfacetamide sodium (acne) 10 % suspension See Rx Instructions .ROUTE .COMPLEX Qty: 118 5RF Dose Instruction: APPLY TOPICALLY TO SCALP TWICE DAILY FOR BUMPS ON SCALP Rx Instructions: APPLY TOPICALLY TO SCALP TWICE DAILY FOR BUMPS ON SCALP Triple Antibiotic 3.5mg-400 unit- 5,000 unit/gram ointment See Rx Instructions .ROUTE .COMPLEX Qty: 14.2 3RF Dose Instruction: APPLY TO THE AFFECTED AREA(S) topically NEEDED FOR minor SKIN irritation Rx Instructions: APPLY TO THE AFFECTED AREA(S) topically NEEDED FOR minor SKIN irritation olanzapine 20 mg tablet See Rx Instructions .ROUTE .COMPLEX Qty: 30 5RF Dose Instruction: TAKE 1/2 TABLET BY MOUTH TWICE DAILY FOR BIPOLAR Rx Instructions: TAKE 1/2 TABLET BY MOUTH TWICE DAILY FOR BIPOLAR polyethylene glycol 3350 17 gram/dose powder See Rx Instructions .ROUTE .COMPLEX Qty: 119 3RF Dose Instruction: dissolve 4gm in 8 ounces of liquid and drink ONCE EVERY DAY FOR CONSTIPATION Rx Instructions: dissolve 4gm in 8 ounces of liquid and drink ONCE EVERY DAY FOR CONSTIPATION fluticasone propionate 50 mcg/actuation spray,suspension See Rx Instructions .ROUTE .COMPLEX Qty: 48 3RF Dose Instruction: USE 2 SPRAYS IN EACH NOSTRIL EVERY DAY FOR ALLERGIES Rx Instructions: USE 2 SPRAYS IN EACH NOSTRIL EVERY DAY FOR ALLERGIES Ear Wax Removal Drops 6.5 % drops See Rx Instructions .ROUTE .COMPLEX Qty: 15 0RF Dose Instruction: instill FIVE drops into affected ear TWICE A DAY FOR 4 DAYS OF THE MONTH FOR EAR WAX REMOVAL Rx Instructions: instill FIVE drops into affected ear TWICE A DAY FOR 4 DAYS OF THE MONTH FOR EAR WAX REMOVAL lamotrigine 100 mg tablet See Rx Instructions .ROUTE .COMPLEX Qty: 180 3RF Dose Instruction: TAKE ONE TABLET BY MOUTH TWICE DAILY FOR BIPOLAR Rx Instructions: TAKE ONE TABLET BY MOUTH TWICE DAILY FOR BIPOLAR trihexyphenidyl 2 mg tablet See Rx Instructions .ROUTE .COMPLEX Qty: 60 5RF Dose Instruction: TAKE ONE TABLET BY MOUTH TWICE DAILY FOR TARDIVE DYSKINESIA Rx Instructions: TAKE ONE TABLET BY MOUTH TWICE DAILY FOR TARDIVE DYSKINESIA ketoconazole 2 % shampoo 1 applic topical .Twice weekly Qty: 120 2RF Rx Instructions: Apply quarter sized amount, leave on for five minutes and rinse thoroughly. Twice weekly. bismuth subsalicylate [Pepto-Bismol] 262 mg/15 mL suspension See Rx Instructions .ROUTE .COMPLEX Qty: 1200 3RF Dose Instruction: take 30ml BY MOUTH EVERY 4 HOURS NEEDED FOR diarrhea,indigestion, and stomach RELIEF Rx Instructions: take 30ml BY MOUTH EVERY 4 HOURS NEEDED FOR diarrhea,indigestion, and stomach RELIEF calcium carbonate-vitamin D3 600 mg-12.5 mcg (500 unit) capsule 1 cap PO BID Qty: 60 11RF venlafaxine 75 mg capsule,extended release 24hr See Rx Instructions .ROUTE .COMPLEX Qty: 60 5RF Dose Instruction: TAKE ONE CAPSULE BY MOUTH TWICE DAILY FOR BIPOLAR Rx Instructions: TAKE ONE CAPSULE BY MOUTH TWICE DAILY FOR BIPOLAR Amlactin Foot Repair Crm 3oz See Rx Instructions .ROUTE .COMPLEX Qty: 85 4RF Dose Instruction: APPLY TO THICKEND AREAS ON FEET TWICE DAILY FOR THICKENED SKIN OF FEET Rx Instructions: APPLY TO THICKEND AREAS ON FEET TWICE DAILY FOR THICKENED SKIN OF FEET lorazepam 1 mg tablet 2 mg PO BID Qty: 120 5RF Rx Instructions: 2 tabs twice a day quetiapine 50 mg tablet See Rx Instructions .ROUTE .COMPLEX Qty: 120 3RF Dose Instruction: TAKE ONE TABLET BY MOUTH EVERY 6 HOURS NEEDED FOR AGITATION; CALL RN PRIOR TO ADMIN Rx Instructions: TAKE ONE TABLET BY MOUTH EVERY 6 HOURS NEEDED FOR AGITATION; CALL RN PRIOR TO ADMIN diphenhydramine HCl [Allergy Relief(diphenhydramin)] 25 mg capsule See Rx Instructions .ROUTE .COMPLEX Qty: 60 5RF Dose Instruction: TAKE TWO CAPSULES BY MOUTH EVERY 6 HOURS NEEDED FOR POST NASAL DRIP/ITCHING Rx Instructions: TAKE TWO CAPSULES BY MOUTH EVERY 6 HOURS NEEDED FOR POST NASAL DRIP/ITCHING famotidine 40 mg tablet See Rx Instructions .ROUTE .COMPLEX Qty: 90 3RF Dose Instruction: TAKE ONE TABLET BY MOUTH EVERY NIGHT AT BEDTIME FOR REFLUX Rx Instructions: TAKE ONE TABLET BY MOUTH EVERY NIGHT AT BEDTIME FOR REFLUX guaifenesin 100 mg/5 mL liquid See Rx Instructions .ROUTE .COMPLEX Qty: 118 5RF Dose Instruction: TAKE 5ML BY MOUTH EVERY 4 HOURS NEEDED FOR COUGH Rx Instructions: TAKE 5ML BY MOUTH EVERY 4 HOURS NEEDED FOR COUGH Discharge Orders: Discharge ED (Routine); Ordered 06/01/25 Ordered By: Eloisa Torres Referrals: Christopher Meza DO [Primary Care Provider, [facility]] - 4-7 days Discharge Diet: Advance as tolerated Discharge Activity: Resume usual activity Patient Instructions: Head Injury (ED) Print Language: Indonesian Coding Level of Care Code ED 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
--- NOTE | 2025-06-01 20:18 | CTR_ITS ---
PROCEDURE INFORMATION: Exam: CT Head Without Contrast Exam date and time: 06/01/2025 8:40 PM Age: 60 years old Clinical indication: Injury or trauma; Fall; Blunt trauma (contusions or hematomas); Without loss of consciousness TECHNIQUE: Imaging protocol: Computed tomography of the head without contrast. Radiation optimization: All CT scans at this facility use at least one of these dose optimization techniques: automated exposure control; mA and/or kV adjustment per patient size (includes targeted exams where dose is matched to clinical indication); or iterative reconstruction. COMPARISON: CT head wo con* [id number] 12/22/2023 7:25 PM RADIATION DOSE METRICS: Total DLP (mGy-cm): 29596.88 FINDINGS: Brain: No acute infarction, hemorrhage, mass, or extra-axial fluid collection is identified. No midline shift. Cerebral ventricles: No hydrocephalus. Paranasal sinuses: Paranasal sinuses are grossly clear. Mastoid air cells: Mastoid air cells are grossly clear. Bones: Calvarium appears intact. Soft tissues: Unremarkable. CT/CT head wo con* [id number] IMPRESSION: No acute intracranial abnormality.
[2025-06-01 20:27] VITALS: O2SAT 94
[2025-06-01 20:31] VITALS: O2SAT 95
[2025-06-01 21:31] VITALS: BP 138/84; PULSE 77; RESP 16; O2SAT 94
== END 2025-06-01 21:32 | disposition home or self-care (01) ==
PROVIDERS: Emergency Provider Emergency Medicine; PCP Family Medicine
DX: S09.8XXA Other specified injuries of head, initial encounter (principal); W01.198A Fall on same level from slipping, tripping and stumbling with subsequent striking against other object, initial encounter
CPT/HCPCS: 70450; 99284

== ENCOUNTER 2025-06-25 09:41 | Emergency (ER) | payer MEDICARE, MEDICAID, SELFPAY ==
--- NOTE | 2025-06-25 09:57 | CT_ITS ---
WS: [id number] CT CERVICAL SPINE HISTORY: Trauma TECHNIQUE: Contiguous 2.0 mm axial imaging performed through the entire cervical spine. Sagittal and coronal reformats also performed. All CT scans at [facility] use at least one of these dose optimization techniques: automated exposure control; mA and/or kV adjustment per patient size (includes targeted exams where dose is matched to clinical indication); or iterative reconstruction. DLP: 1402.90 mGy.cm COMPARISON: None available. Straightening and slight reversal the normal curvature of the cervical spine. Disc spaces are narrowed. Endplate hypertrophic osteophytes at all levels. Facet joints are normally aligned. Facet joint arthropathy is noted bilaterally. Craniocervical junction is normal. Lateral masses of C1 and C2 are aligned. The odontoid is intact. C2-C3: Bilateral facet joint arthropathy and foraminal stenosis. C3-C4: Severe bilateral facet arthritis and foraminal stenosis. C4-C5: Osteophytic ridging and bilateral facet arthritis. Severe bilateral foraminal stenosis, RIGHT greater than LEFT. C5-C6: Marked osteophytic ridging and facet arthritis. Mild central with moderate bilateral foraminal stenosis. C6-C7: Osteophytic ridging and mild facet arthritis. C7-T1: Osteophytic ridging with mild foraminal stenosis. Lung apices are clear. CT/CT cervical spin wo con* [id number] IMPRESSION: 1. No acute cervical spine fracture. 2. Advanced degenerative disc disease and facet arthritis. Multilevel foramina l stenosis as above.
--- NOTE | 2025-06-25 09:58 | CT_ITS ---
WS: [id number] CT HEAD NONCONTRAST HISTORY: Trauma TECHNIQUE: Contiguous axial imaging performed through the brain. Bone and soft tissue windows. Sagittal and coronal reformats reviewed. All CT scans at [facility] use at least one of these dose optimization techniques: automated exposure control; mA and/or kV adjustment per patient size (includes targeted exams where dose is matched to clinical indication); or iterative reconstruction. DLP: 1402.90 mGy.cm COMPARISON: 06/01/2025 No acute intracranial hemorrhage, midline shift or mass effect. Very mild atrophy and small vessel disease. Similar to the prior study. No prior infarcts. Ventricles: Normal size with no hydrocephalus. Paranasal sinuses: As visualized are clear. Mastoid air cells: Well pneumatized. Calvarium and scalp: Skull is intact with no soft tissue edema or swelling. CT/CT head wo con* [id number] IMPRESSION: No acute intracranial hemorrhage or edema. No prior infarct.
[2025-06-25 10:03] VITALS: BP 119/85; PULSE 98; RESP 16; TEMP 37; O2SAT 96; BMI 29.8
--- NOTE | 2025-06-25 10:21 | ED_ITS ---
HPI - Fall General: Chief Complaint: Fall Stated Complaint: Fell hit L side of head and back of head Time Seen by Provider: 06/25/25 09:57 History of Present Illness: 60-year-old female presents emergency ro om with a caregiver she lives at a [facility] she fell and hit the back of her head she has significant cognitive disability she reports loss of consciousness there was no witness to the episode she has not had any vomiting since. There is no other focal complaints. She is complai rosa some mild neck discomfort. She complains of left arm pain but moves without any difficulty no focal signs site of pain at this time. Associated symptoms-after fall: Denies abdominal pain, chest pain or neck pain Related Data Home Medications ?Medication ?Instructions ?Recorded ?Confirmed diphenhydramine HCl 50 mg capsule 50 mg PO Q6H PRN itc anne 10/21/19 06/24/25 acetaminophen 325 mg tablet See Rx Instructions .Route 03/04/25 06/24/25 .COMPLEX PRN ammonium lactate 12 % topical cream 1 applic topical B ID 03/04/25 06/24/25 Previous Rx's ?Medication ?Instructions ?Recorded Wheelchair #1 ea 01/25/23 Side Rails #1 ea 11/22/23 walker #1 ea 06/18/24 amlodipine 5 mg tablet See Rx Instructions .Route 1 10/05/23 .COMPLEX #30 tabs sulfacetamide sodium (acne) 10 % See Rx Instructions . Route 10/21/24 lotion (suspension) .COMPLEX #118 mL neomycin-bacitracn Zn-polymyx 3.5 See Rx Instructions .Route 11/26/24 mg-400 unit-5,000 unit/gram top .COMPLEX #14.2 grams oint (Triple Antibiotic) polyethylene glycol 3350 17 See Rx Instructions .Route 12/17/24 gram/dose oral powder .COMPLEX #119 grams fluticasone propionate 50 See Rx Instructions .Route 0 12/24/24 mcg/actuation nasal .COMPLEX #48 grams spray,suspension carbamide peroxide 6.5 % ear drops See Rx Instructions .Route 01/13/25 (Ear Wax Removal Drops) .COMPLEX #15 mL lamotrigine 100 mg tablet See Rx Instructions .Route 0 02/10/25 .COMPLEX #180 tabs trihexyphenidyl 2 mg tablet See Rx Instructions .Route 03/03/25 .COMPLEX #60 tabs ketoconazole 2 % shampoo 1 applic topical .Twice week ly 03/09/25 #120 mL bismuth subsalicylate 262 mg/15 mL See Rx Instructions .Route 03/10/25 oral suspension (Pepto-Bismol) .COMPLEX #1,200 mL calcium 600 mg (as 1 cap PO BID #60 caps carbonate)-vitamin D3 12.5 mcg (500 unit) capsule Amlactin Foot Repair Crm 3oz See Rx Instructions .Rout e 03/17/25 .COMPLEX #85 grams venlafaxine 75 mg capsule,extended See Rx Instructions .Route 03/17/25 release 24 hr .COMPLEX #60 caps lorazepam 1 mg tablet 2 mg (2 x 1 mg) PO BID #120 tabs 04/02/25 quetiapine 50 mg tablet See Rx Instructions .Route 0 04/08/25 .COMPLEX #120 tabs diphenhydramine HCl 25 mg capsule See Rx Instructions .Route 04/15/25 (Allergy Relief (diphenhydramine)) .COMPLEX #60 ea famotidine 40 mg tablet See Rx Instructions .Route 0 05/04/25 .COMPLEX #90 tabs guaifenesin 100 mg/5 mL oral liquid See Rx Instruction s .Route 05/13/25 .COMPLEX #118 mL olanzapine 20 mg tablet See Rx Instructions .Route 0 06/03/25 .COMPLEX #30 tabs aluminum-mag hydroxide-simethicone See Rx Instructions .Route 06/16/25 200 mg-200 mg-20 mg/5 mL oral susp .COMPLEX #3,000 mL (Andra-Lanta) Allergies Allergy/AdvReac Type Severity Reaction Status Date / Time No Known Allergies Allergy Verified 06/24/25 10:35 Review of Systems Const: Denies: fever(s) or chills Card: Denies: chest pain Resp: Denies: dyspnea GI: Denies: abdominal pain : Denies: dysuria, urinary frequency or urinary urgency Musc: Denies: neck pain or back pain Skin/Breast: Denies: rash PFSH ED PFSH: Medical History No pertinent past medical history neghx: htn,dm,thyroid,dvt/pe PCP: Dr. Meza Hematochezia Mental deficiency Lewy body dementia Surgical History History of tubal ligation Family History Other Family history unknown Social History Smoking and tobacco/nicotine status: never used tobacco/nicotine Female Reproductive History: Spontaneous abortions: No Physical Exam Const: COMMON NORMALS: no acute distress GENERAL APPEARANCE: cooperative and comfortable ORIENTATION/CONSCIOUSNESS: Yes awake HENMT: COMMON NORMALS: normocephalic and hearing grossly normal bilaterally HEAD & SCALP: normocephalic OTHER: Superficial abrasion left parietal area no full-thickness laceration no active bleeding Resp: COMMON NORMALS: normal respiratory effort, No retractions, No use of accessory muscles and clear to auscultation bilaterally AUSCULTATION: clear to auscultation bilaterally Cardio: COMMON NORMALS: regular rate, regular rhythm and No murmurs present (Cardio) RATE: regular rate RHYTHM: regular rhythm GI: COMMON NORMALS: Soft to palpation and No hepatosplenomegaly present AUSCULTATION: Yes normoactive bowel sounds PALPATION: Yes Soft to palpation, No Tenderness to palpation present (GI), No Guarding due to palpation present (GI) and Yes No hepatosplenomegaly present Extremity: COMMON NORMALS: normal to inspection, capillary refill normal, no clubbing, cyanosis or edema, no calf tenderness and no pedal edema Neuro: OTHER: No focal neurologic deficits. Skin: COMMON NORMALS: no rashes or lesions noted GENERAL SKIN EXAM: no rashes or lesions noted Course Vital Signs: Vital signs: Vital Signs Temperature 98.6 F 06/25/25 10:03 Pulse Rate 78 06/25/25 12:21 Respiratory Rate 16 06/25/25 10:03 Blood Pressure 137/87 06/25/25 12:21 Pulse Oximetry 95 06/25/25 12:21 Oxygen Delivery Me thod Room Air 06/25/25 12:00 MDM - Fall Medical Decision Making CT head and neck unremarkable. Will discharge patient home. Return if develops further problems. Abrasion in the right parietal area does not require any suturing. Medical Records I reviewed the patient's medical records. Lab Data I reviewed the patient's lab results. Radiology Impressions Cervical Spine CT 06/25/25 09:57 IMPRESSION: 1. No acute cervical spine fracture. 2. Advanced degenerative disc disease and facet arthritis. Multilevel foraminal stenosis as above. Head CT 06/25/25 09:58 IMPRESSION: No acute intracranial hemorrhage or edema. No prior infarct. All radiology interpretation(s) finalized by discharge Discharge Plan Discharge Patient Disposition: Home Clinical Impression: Fall Lewy body dementia Qualifiers: Dementia severity: moderate Dementia behavioral or psychological symptom: with agitation Qualified Code(s): G31.83 - Neurocognitive disorder with Lewy bodies Condition: Stable Prescriptions: No Action diphenhydramine HCl 50 mg capsule 50 mg PO Q6H PRN (Reason: itching) (DME) Wheelchair 1 See Rx Instructions .Route .MEDSUPPLY Qty: 1 0RF Rx Instructions: As directed acetaminophen 325 mg tablet See Rx Instructions .ROUTE .COMPLEX PRN Dose Instruction: TAKE TWO TABLETS (650mg) BY MOUTH EVERY 6 HOURS NEEDED FOR HEADACHE OR FEVER >100 Rx Instructions: TAKE TWO TABLETS (650mg) BY MOUTH EVERY 6 HOURS NEEDED FOR HEADACHE OR FEVER >100 PRN; ammonium lactate 12 % cream 1 applic topical BID (DME) Side Rails See Rx Instructions .Route .MEDSUPPLY Qty: 1 0RF Rx Instructions: Please issue and apply side rails to bed due to risk/recurrence of falls, injury prevention, and to assist with mobility. (DME) walker Misc See Rx Instructions .Route Qty: 1 0RF Rx Instructions: Please issue Front wheeled walker. amlodipine 5 mg tablet See Rx Instructions .ROUTE .COMPLEX Qty: 30 11RF Dose Instruction: TAKE ONE TABLET BY MOUTH EVERY DAY FOR HYPERTENSION. CHECK B/P BEFORE GIVING; NOTIFY RN IF <100/60 OR >130/90 Rx Instructions: TAKE ONE TABLET BY MOUTH EVERY DAY FOR HYPERTENSION. CHECK B/P BEFORE GIVING; NOTIFY RN IF <100/60 OR >130/90 sulfacetamide sodium (acne) 10 % suspension See Rx Instructions .ROUTE .COMPLEX Qty: 118 5RF Dose Instruction: APPLY TOPICALLY TO SCALP TWICE DAILY FOR BUMPS ON SCALP Rx Instructions: APPLY TOPICALLY TO SCALP TWICE DAILY FOR BUMPS ON SCALP Triple Antibiotic 3.5mg-400 unit- 5,000 unit/gram ointment See Rx Instructions .ROUTE .COMPLEX Qty: 14.2 3RF Dose Instruction: APPLY TO THE AFFECTED AREA(S) topically NEEDED FOR minor SKIN irritation Rx Instructions: APPLY TO THE AFFECTED AREA(S) topically NEEDED FOR minor SKIN irritation polyethylene glycol 3350 17 gram/dose powder See Rx Instructions .ROUTE .COMPLEX Qty: 119 3RF Dose Instruction: dissolve 4gm in 8 ounces of liquid and drink ONCE EVERY DAY FOR CONSTIPATION Rx Instructions: dissolve 4gm in 8 ounces of liquid and drink ONCE EVERY DAY FOR CONSTIPATION fluticasone propionate 50 mcg/actuation spray,suspension See Rx Instructions .ROUTE .COMPLEX Qty: 48 3RF Dose Instruction: USE 2 SPRAYS IN EACH NOSTRIL EVERY DAY FOR ALLERGIES Rx Instructions: USE 2 SPRAYS IN EACH NOSTRIL EVERY DAY FOR ALLERGIES Ear Wax Removal Drops 6.5 % drops See Rx Instructions .ROUTE .COMPLEX Qty: 15 0RF Dose Instruction: instill FIVE drops into affected ear TWICE A DAY FOR 4 DAYS OF THE MONTH FOR EAR WAX REMOVAL Rx Instructions: instill FIVE drops into affected ear TWICE A DAY FOR 4 DAYS OF THE MONTH FOR EAR WAX REMOVAL lamotrigine 100 mg tablet See Rx Instructions .ROUTE .COMPLEX Qty: 180 3RF Dose Instruction: TAKE ONE TABLET BY MOUTH TWICE DAILY FOR BIPOLAR Rx Instructions: TAKE ONE TABLET BY MOUTH TWICE DAILY FOR BIPOLAR trihexyphenidyl 2 mg tablet See Rx Instructions .ROUTE .COMPLEX Qty: 60 5RF Dose Instruction: TAKE ONE TABLET BY MOUTH TWICE DAILY FOR TARDIVE DYSKINESIA Rx Instructions: TAKE ONE TABLET BY MOUTH TWICE DAILY FOR TARDIVE DYSKINESIA ketoconazole 2 % shampoo 1 applic topical .Twice weekly Qty: 120 2RF Rx Instructions: Apply quarter sized amount, leave on for five minutes and rinse thoroughly. Twice weekly. bismuth subsalicylate [Pepto-Bismol] 262 mg/15 mL suspension See Rx Instructions .ROUTE .COMPLEX Qty: 1200 3RF Dose Instruction: take 30ml BY MOUTH EVERY 4 HOURS NEEDED FOR diarrhea,indigestion, and stomach RELIEF Rx Instructions: take 30ml BY MOUTH EVERY 4 HOURS NEEDED FOR diarrhea,indigestion, and stomach RELIEF calcium carbonate-vitamin D3 600 mg-12.5 mcg (500 unit) capsule 1 cap PO BID Qty: 60 11RF venlafaxine 75 mg capsule,extended release 24hr See Rx Instructions .ROUTE .COMPLEX Qty: 60 5RF Dose Instruction: TAKE ONE CAPSULE BY MOUTH TWICE DAILY FOR BIPOLAR Rx Instructions: TAKE ONE CAPSULE BY MOUTH TWICE DAILY FOR BIPOLAR Amlactin Foot Repair Crm 3oz See Rx Instructions .ROUTE .COMPLEX Qty: 85 4RF Dose Instruction: APPLY TO THICKEND AREAS ON FEET TWICE DAILY FOR THICKENED SKIN OF FEET Rx Instructions: APPLY TO THICKEND AREAS ON FEET TWICE DAILY FOR THICKENED SKIN OF FEET lorazepam 1 mg tablet 2 mg PO BID Qty: 120 5RF Rx Instructions: 2 tabs twice a day quetiapine 50 mg tablet See Rx Instructions .ROUTE .COMPLEX Qty: 120 3RF Dose Instruction: TAKE ONE TABLET BY MOUTH EVERY 6 HOURS NEEDED FOR AGITATION; CALL SUNDAR SHELTONR TO ADMIN Rx Instructions: TAKE ONE TABLET BY MOUTH EVERY 6 HOURS NEEDED FOR AGITATION; CALL RN PRIOR TO ADMIN diphenhydramine HCl [Allergy Relief(diphenhydramin)] 25 mg capsule See Rx Instructions .ROUTE .COMPLEX Qty: 60 5RF Dose Instruction: TAKE TWO CAPSULES BY MOUTH EVERY 6 HOURS NEEDED FOR POST NASAL DRIP/ITCHING Rx Instructions: TAKE TWO CAPSULES BY MOUTH EVERY 6 HOURS NEEDED FOR POST NASAL DRIP/ITCHING famotidine 40 mg tablet See Rx Instructions .ROUTE .COMPLEX Qty: 90 3RF Dose Instruction: TAKE ONE TABLET BY MOUTH EVERY NIGHT AT BEDTIME FOR REFLUX Rx Instructions: TAKE ONE TABLET BY MOUTH EVERY NIGHT AT BEDTIME FOR REFLUX guaifenesin 100 mg/5 mL liquid See Rx Instructions .ROUTE .COMPLEX Qty: 118 5RF Dose Instruction: TAKE 5ML BY MOUTH EVERY 4 HOURS NEEDED FOR COUGH Rx Instructions: TAKE 5ML BY MOUTH EVERY 4 HOURS NEEDED FOR COUGH olanzapine 20 mg tablet See Rx Instructions .ROUTE .COMPLEX Qty: 30 5RF Dose Instruction: TAKE 1/2 TABLET BY MOUTH TWICE DAILY FOR bipolar Rx Instructions: TAKE 1/2 TABLET BY MOUTH TWICE DAILY FOR bipolar alum-mag hydroxide-simeth [Andra-Lanta] 200-200-20 mg/5 mL suspension See Rx Instructions .ROUTE .COMPLEX Qty: 3000 2RF Dose Instruction: take 30 ML BY MOUTH every FOUR hours NEEDED FOR DYSPEPSIA; MYLANTA Rx Instructions: take 30 ML BY MOUTH every FOUR hours NEEDED FOR DYSPEPSIA; MYLANTA Discharge Orders: Discharge ED (Routine); Ordered 06/25/25 Ordered By: Hansel Kc Referrals: Christopher Meza DO [Primary Care Provider, Family Practice] Patient Instructions: Opioid Safety, Pain Management, Patient Portal & [place] Instructions Activity Restrictions/Additional Instructions: Thank you for choosing [facility] for your healthcare needs today. It is very important that you follow up as instructed or that you return to the Emergency Department should you have concerns or if your condition changes or worsens in any way. Emergency department visits are focused on emergent conditions, in some cases you may require further evaluation on an outpatient basis. You were seen emergency room after a fall. Imaging was unremarkable no significant exam findings. Continue current medications follow-up with your primary care doctor. (Please note that included in your discharge packet is information concerning opioid safety and pain management. 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
[2025-06-25 11:18] VITALS: BP 143/101; PULSE 88; O2SAT 95
[2025-06-25 12:00] VITALS: PULSE 90; O2SAT 94
--- NOTE | 2025-06-25 12:02 | PC.NURSE ---
pt ambulated down hallway with personal walker w/o difficulty.
[2025-06-25 12:21] VITALS: BP 137/87; PULSE 78; O2SAT 95
== END 2025-06-25 12:22 | disposition home or self-care (01) ==
PROVIDERS: Emergency Provider Family Medicine; PCP Family Medicine
DX: G31.83 Neurocognitive disorder with Lewy bodies (principal)
CPT/HCPCS: 70450; 72125; 99284

== ENCOUNTER → 2025-07-15 11:39 | Outpatient (BNVA) | payer MEDICARE, MEDICAID, SELFPAY | PROVIDERS: PCP Family Medicine; Visit Provider Specialist | DX: G31.83 Neurocognitive disorder with Lewy bodies (principal); R29.90 Unspecified symptoms and signs involving the nervous system; F31.12 Bipolar disorder, current episode manic without psychotic features, moderate; F79 Unspecified intellectual disabilities; F02.B11 Dementia in other diseases classified elsewhere, moderate, with agitation; Z91.81 History of falling | CPT/HCPCS: 99214 ==